=== PATIENT | male | born 1985 | race Caucasian/White ===

== ENCOUNTER 2018-07-28 14:35 | Inpatient (IN) ==
[2018-07-28 15:39] LABS: Alanine Aminotransferase 28 Units/L (7-52); Albumin 4.8 g/dL (3.5-5.7); Albumin/Globulin Ratio 1.7 (1.1-2.2); Alkaline Phosphatase 76 Units/L (34-104); Aspartate Amino Transferase 25 Units/L (13-39); BUN/Creatinine Ratio 16 (6-26); Bilirubin,Direct 0.1 mg/dL (0.0-0.2); Bilirubin,Indirect 0.8 mg/dL (0.0-1.2); Bilirubin,Total 0.9 mg/dL (0.3-1.0); Blood Urea Nitrogen 14 mg/dL (6-20); Calcium 9.5 mg/dL (8.6-10.3); Carbon Dioxide 23 mEq/L (23-29); Chloride 98 mEq/L (98-107); Globulin 2.8 g/dL (2.4-3.5); Glucose 109 mg/dL (70-105); Lipase 45 Units/L (11-82); Osmolality,Calculated 283 (280-300); Sodium 136 mEq/L (136-145); Total Protein 7.6 g/dL (6.4-8.9); eGFR For Non-African Americans > 60 (> 60)
--- NOTE | 2018-07-28 15:44 | Emergency Department Note ---
Disposition Clinical Impression: Pancreatitis Qualifiers: Chronicity: acute Pancreatitis type: other Acute pancreatitis complication: unspecified Qualified Code(s): K85.80 - Other acute pancreatitis without necrosis or infection Disposition: Admitted As Inpatient Condition: Fair Time of Disposition: 18:27 Abdominal Pain HPI - General Chief Complaint: ED Abdominal Pain Stated Complaint: ABD Pain Time Seen by Provider: 07/28/18 15:33 Source: patient Mode of arrival: private vehicle Limitations: no limitations Nursing Notes Reviewed: Yes Vital Signs Reviewed: Yes - History of Present Illness HPI Narrative: 32-year-old male with past medical history of necrotizing pancreatitis, splenic thrombosis treated with warfarin, hypertension, hyperlipidemia, hypertriglyceridemia, depression presenting to the ED with complaints of epigastric pain that started last night while he was asleep that woke him from sleep. He describes the pain as deep and aching, with radiation through to his back, made worse with certain movements, made better by certain other movements, 10 out of 10 in severity. Patient has tried no medications at home as he says he is limited in what he may take because he is on warfarin. Patient states his last episode of pancreatitis was in September 2017, and he states that the pain was very similar to how he feels now. He is denying fevers or chills, endorses one episode of nonbloody nonbilious vomiting, and one episode of nonbloody, non- dark, watery diarrhea. Patient had his last episode of vomiting this morning. Subsequently he was able to drink some beef broth. Patient states that he did not want to come in but was very concerned that this might be pancreatitis. Pain Scale: 8 - Related Data Allergies Allergy/AdvReac Type Severity Reaction Status Date / Time No Known Allergies Allergy Verified 07/28/18 23:09 Review of Systems: All systems ED: reviewed and negative except as stated. Constitutional: Denies: fever, chills ENT ED: Denies: ear pain, throat pain Cardiovascular: Denies: chest pain, palpitations Respiratory: Denies: cough, dyspnea Gastrointestinal: Denies: constipation Reports: abdominal pain, nausea, vomiting, diarrhea Genitourinary: Denies: urgency, dysuria, frequency Musculoskeletal: Denies: neck pain Reports: back pain Integumentary: Denies: rash, abrasion Neurological: Denies: headache, weakness, numbness, paresthesias Psychiatric: Denies: anxiety, Reports: depression Endocrine: Denies: fatigue, heat or cold intolerance Hematological/Lymphatic: Denies: easy bleeding, easy bruising Allergic/Immunologic: Denies: facial swelling, urticaria Abdominal Pain PMH - Past Medical History Medical history: Reports: hyperlipidemia, hypertension, other Male Surgical History: Reports: Tonsillectomy Psychiatric history: Reports: depression - Social History Smoking status: Never smoker Alcohol use: Reports: rarely Drug use: Reports: marijuana Physical Exam General: A&O x 3. No acute distress. Well developed, well nourished. Head: atraumatic, normocephalic. ENT: No conjunctival injection, no scleral icterus. PERRLA. EOMI. Oropharynx non- erythematous. mucous membranes tacky. Neuro: No focal deficits, no speech deficit, no facial droop, mentating well. BUE/BLE Str 5/5. Pulm: Lungs CTAB A/P. No wheezes, rales, ronchi. Cardio: RRR no m/r/g. Chest not tender to palpation. Abd: Soft, non-distended. Normoactive bowel sounds. No guarding. Non rigid. Reports no tenderness to palpation, even with deep palpation in epigastric area. He reports it is "deeper than that". Extremities: Radial pulses 2+ gage, dorsalis pedis/posterior tibialis 2+ gage. No LE edema. No cyanosis, clubbing. Skin: warm, dry, intact. No rashes. Psych: Appropriate mood and affect. Answers questions appropriately. Cooperative with exam. - General Limitations: no limitations General appearance: alert, in no apparent distress Course Course Narrative: Ddx includes but is not limited to: pancreatitis, choleycystitis, choleylithiasis, mesenteric ischemia, AAA Plan: CBC, BMP, hepatic panel, lipase, EKG, troponin, CXR, lactic - Reevaluation(s) Reevaluation #1: On rexamination, pt's abd remained soft, pain was better controlled, but he expressed concern for being sent home as he lives alone and was in a lot of pain while driving himself out here. Did not feel safe enough to be discharged with the possibility of his symptoms getting worse. Time: 17:38 Vital Signs Temperature 98.8 F 07/28/18 14:38 Pulse Rate 95 07/28/18 14:38 Respiratory Rate 14 07/28/18 14:38 Blood Pressure 177/123 07/28/18 14:38 O2 Sat by Pulse Oximetry 97 07/28/18 14:38 Temperature 98.8 F 07/28/18 14:38 Pulse Rate 86 07/28/18 15:40 Respiratory Rate 22 07/28/18 15:40 Blood Pressure 173/113 07/28/18 15:40 O2 Sat by Pulse Oximetry 99 07/28/18 15:40 Oxygen Delivery Oxygen Delivery Room Air Abdominal Pain - MDM Narrative Medical decision making narrative: Pts CT was concerning for mild pancreatic stranding and combined with abdominal pain, these findings are concerning for pancreatitis. Given pt's history of necrotizing pancreatitis and the fact that the pt lives alone, if he were to develop worse symptoms, he did not feel as if he could care for himself and that it would be difficult for him to return should his symptoms get worse. Pt was made NPO, started on fluids, and had pain control and anti-nausea meds administered in the ED. He was admitted to the hospitalist, Dr. Liu, who agreed to accept the pt to his service. Patient was given an opportunity to ask questions at bedside and all of their concerns were addressed. Patient verbalized understanding and agreement with plan of care. Pt remained stable while in the department. - Medical Records Medical records reviewed: Yes I reviewed the patient's medical records. - Lab Data Lab results reviewed: Yes I reviewed the patient's lab results. Result diagrams: 07/28/18 14:45 07/28/18 14:45 Lab Results 07/28/18 07/28/18 07/28/18 Range/Units 14:45 14:45 15:36 WBC 7.7 (4.3-11.1) K/mcL RBC 5.23 (4.19-5.50) M/mcL Hgb 15.4 (12.9-16.9) g/dL Hct 44.7 (37.5-50.1) % MCV 85.5 (83.0-100.0) fL MCH 29.4 (28.0-33.3) pg MCHC 34.5 (31.6-35.5) g/dL RDW 13.3 (11.5-14.5) % Plt Count 280 (140-400) K/mcL MPV 9.7 (9.4-12.4) fL Immature Gran % 0.4 (0-4) % Seg Neutrophils % 60.4 % Lymphocytes % 31.3 % Monocytes % 6.3 % Eosinophils % 1.0 % Basophils % 0.6 % Neutrophils # 4.7 (1.6-8.9) K/mcL Lymphocytes # 2.4 (0.6-4.6) K/mcL Monocytes # 0.5 (0.0-1.3) K/mcL Eosinophils # 0.1 (0.0-0.6) K/mcL Basophils # 0.1 (0.0-0.2) K/mcL PT (9.4-12.1) Seconds INR APTT (26.0-36.0) Seconds Sodium 136 (136-145) mEq/L Potassium 4.0 (3.5-5.1) mEq/L Chloride 98 (98-107) mEq/L Carbon Dioxide 23 (23-29) mEq/L BUN 14 (6-20) mg/dL Creatinine 0.90 (0.70-1.30) mg/dL Est GFR ( Amer) > 60 (> 60) Est GFR (Non-Af Amer) > 60 (> 60) BUN/Creatinine Ratio 16 (6-26) Glucose 109 H (70-105) mg/dL Calculated Osmolality 283 (280-300) Lactic Acid (0.5-2.2) mmol/L Calcium 9.5 (8.6-10.3) mg/dL Total Bilirubin 0.9 (0.3-1.0) mg/dL Direct Bilirubin 0.1 (0.0-0.2) mg/dL Indirect Bilirubin 0.8 (0.0-1.2) mg/dL AST 25 (13-39) Units/L ALT 28 (7-52) Units/L Alkaline Phosphatase 76 (34-104) Units/L Lactate Dehydrogenase (140-271) Units/L Troponin I (< 0.04) ng/mL Serum Total Protein 7.6 (6.4-8.9) g/dL Albumin 4.8 (3.5-5.7) g/dL Globulin 2.8 (2.4-3.5) g/dL Albumin/Globulin Ratio 1.7 (1.1-2.2) Triglycerides (< 150) mg/dL Lipase 45 (11-82) Units/L Urine Color Yellow (Yellow) Urine Clarity Clear (Clear) Urine pH 6.0 (5.0-8.0) pH Units Ur Specific [place] 1.015 (1.010-1.025) Urine Protein Negative (Neg-Trace) mg/dL Urine Glucose (UA) Normal (Normal) mg/dL Urine Ketones Negative (Negative) mg/dL Urine Blood Negative (Negative) Urine Nitrite Negative (Negative) Urine Bilirubin Negative (Negative) Urine Urobilinogen Normal (Normal) mg/dL Ur Leukocyte Esterase Negative (Negative) Ur Culture Indicated? NO (NO) 07/28/18 07/28/18 07/28/18 Range/Units 15:51 15:51 16:16 WBC (4.3-11.1) K/mcL RBC (4.19-5.50) M/mcL Hgb (12.9-16.9) g/dL Hct (37.5-50.1) % MCV (83.0-100.0) fL MCH (28.0-33.3) pg MCHC (31.6-35.5) g/dL RDW (11.5-14.5) % Plt Count (140-400) K/mcL MPV (9.4-12.4) fL Immature Gran % (0-4) % Seg Neutrophils % % Lymphocytes % % Monocytes % % Eosinophils % % Basophils % % Neutrophils # (1.6-8.9) K/mcL Lymphocytes # (0.6-4.6) K/mcL Monocytes # (0.0-1.3) K/mcL Eosinophils # (0.0-0.6) K/mcL Basophils # (0.0-0.2) K/mcL PT 14.2 H (9.4-12.1) Seconds INR 1.3 APTT 27.1 (26.0-36.0) Seconds Sodium (136-145) mEq/L Potassium (3.5-5.1) mEq/L Chloride (98-107) mEq/L Carbon Dioxide (23-29) mEq/L BUN (6-20) mg/dL Creatinine (0.70-1.30) mg/dL Est GFR ( Amer) (> 60) Est GFR (Non-Af Amer) (> 60) BUN/Creatinine Ratio (6-26) Glucose (70-105) mg/dL Calculated Osmolality (280-300) Lactic Acid 2.0 (0.5-2.2) mmol/L Calcium (8.6-10.3) mg/dL Total Bilirubin (0.3-1.0) mg/dL Direct Bilirubin (0.0-0.2) mg/dL Indirect Bilirubin (0.0-1.2) mg/dL AST (13-39) Units/L ALT (7-52) Units/L Alkaline Phosphatase (34-104) Units/L Lactate Dehydrogenase 157 (140-271) Units/L Troponin I < 0.03 (< 0.04) ng/mL Serum Total Protein (6.4-8.9) g/dL Albumin (3.5-5.7) g/dL Globulin (2.4-3.5) g/dL Albumin/Globulin Ratio (1.1-2.2) Triglycerides 1488 H (< 150) mg/dL Lipase (11-82) Units/L Urine Color (Yellow) Urine Clarity (Clear) Urine pH (5.0-8.0) pH Units Ur Specific [place] (1.010-1.025) Urine Protein (Neg-Trace) mg/dL Urine Glucose (UA) (Normal) mg/dL Urine Ketones (Negative) mg/dL Urine Blood (Negative) Urine Nitrite (Negative) Urine Bilirubin (Negative) Urine Urobilinogen (Normal) mg/dL Ur Leukocyte Esterase (Negative) Ur Culture Indicated? (NO) - Radiology Data Radiology results reviewed: Yes I reviewed the patient's radiology results. Chest X-Ray 07/28/18 15:59 IMPRESSION: No acute abnormality detected. D/ / Juaquin Pollock MD / Juaquin Pollock MD Interpreting Provider: Juaquin Pollock MD Abdomen/Pelvis CT 07/28/18 16:00 IMPRESSION: 1. Mild stranding adjacent to the pancreatic head compatible with history of pancreatitis. 2. Low-density lesion in the tail of the pancreas is unchanged, potentially representing pancreatic pseudocyst. Attention on follow-up. D/ / Naveen Webb MD / Naveen Webb MD Interpreting Provider: Naveen Webb MD - EKG Data EKG attestation: Yes I reviewed and interpreted this EKG. EKG results narrative: HR 72, rhythm sinus, axis normal. MS 190, QRS 99, QTc 410. No clinically significant ST elevation or depression. No WPW, no brugada patterns. Attestation Statement - Attestation Attestation: Resident Attestation: I examined this patient and my medical decision making was reviewed with the Resident Physician. I agree with the documented findings, disposition and treatment plan as described except to the extent set forth below. We independently had [id number] contact with the patient. Patient presenting to the emergency department for epigastric pain. Patient with history of necrotizing pancreatitis secondary to elevated triglycerides. Patient with no family physician. Patient will undergo further evaluation for pancreatitis. Patient significant tenderness to the epigastric region. No rebound or guarding. Patient's labs are otherwise unremarkable. CT scan concerning for pancreatitis. Given CT scan findings as well as clinical impression of pancreatitis patient was offered pain management as well as by mouth trial. Patient states he is unable to tolerate by mouth and does not want to try. Patient concerned about going home as he was barely able to drive himself to the emergency department today secondary to pain. Patient will be admitted for further observation and management of pancreatitis.
[2018-07-28] MEDS ORDERED: Ondansetron 4 MG/2 ML VIAL IVP ONE (15:51)
[2018-07-28] MEDS ORDERED: *HR* FentaNYL (PF) 100 MCG/2 ML VIAL IVP ONE (15:51)
[2018-07-28 15:54] LABS: Bilirubin,Urine Negative (Negative); Blood,Urine Negative (Negative); Clarity,Urine Clear (Clear); Color,Urine Yellow (Yellow); Glucose,Urine (UA) Normal (Normal); Ketones,Urine Negative (Negative); Leukocyte Esterase,Urine Negative (Negative); Nitrite,Urine Negative (Negative); Protein,Urine Negative (Neg-Trace); Specific Gravity,Urine 1.015 (1.010-1.025); Urobilinogen,Urine Normal (Normal)
[2018-07-28] MEDS ORDERED: Isovue-370 500 ML BOTTLE IVP ONE (15:59)
[2018-07-28] MEDS ORDERED: 0.9 % Sodium Chloride 1,000 ML IVC ONE (16:21)
[2018-07-28 16:35] LABS: Basophils # 0.1 K/mcL (0.0-0.2); Basophils % 0.6 %; Eosinophils # 0.1 K/mcL (0.0-0.6); Hematocrit 44.7 % (37.5-50.1); Hemoglobin 15.4 g/dL (12.9-16.9); Immature Granulocytes % 0.4 % (0-4); Lymphocytes # 2.4 K/mcL (0.6-4.6); Lymphocytes % 31.3 %; Mean Corpuscular HGB Conc 34.5 g/dL (31.6-35.5); Mean Corpuscular Hemoglobin 29.4 pg (28.0-33.3); Mean Corpuscular Volume 85.5 fL (83.0-100.0); Mean Platelet Volume 9.7 fL (9.4-12.4); Monocytes # 0.5 K/mcL (0.0-1.3); Monocytes % 6.3 %; Neutrophils # 4.7 K/mcL (1.6-8.9); Platelet Count 280 K/mcL (140-400); Red Blood Count 5.23 M/mcL (4.19-5.50); Red Cell Distribution Width 13.3 % (11.5-14.5); Segmented Neutrophils % 60.4 %
[2018-07-28 16:37] LABS: INR 1.3; Prothrombin Time 14.2 Seconds (9.4-12.1)
[2018-07-28 16:40] LABS: Activated Partial Thrombo Time 27.1 Seconds (26.0-36.0)
[2018-07-28 16:55] LABS: Troponin I < 0.03 ng/mL (< 0.04)
[2018-07-28] MEDS ORDERED: *HR* Morphine 2 MG/ML SYRINGE IVP STA (17:06)
[2018-07-28 18:11] LABS: Lactate Dehydrogenase 157 Units/L (140-271); Triglycerides 1488 mg/dL (< 150)
[2018-07-28] MEDS ORDERED: *HR* Morphine 2 MG/ML SYRINGE IVP ONE (18:54)
[2018-07-28] MEDS ORDERED: *HR* Heparin 5,000 UNIT/ML VIAL IVP PRN ×2 (20:53)
[2018-07-28] MEDS ORDERED: OXYCODONE Oral CONC 10 MG/0.5 ML ORAL.SYG SL PRN (20:55)
[2018-07-28] MEDS ORDERED: Naloxone 0.4 MG/ML INJ IVP PRN (20:55)
[2018-07-28] MEDS ORDERED: Ondansetron 4 MG/2 ML VIAL IVP PRN (21:33)
--- NOTE | 2018-07-28 21:43 | Internal Med History&Physical ---
Date of Encounter: 07/28/18 Time of Encounter: 20:55 Internal Medicine - H&P: HPI Chief complaint: Pancreatitis Admitted From: Emergency Dept Plans for Post Hospital Care: Home History of present illness: Mr. Scanlon is a 32 year old male Patient presented to the ER with epigastic abdominal pain. He has a history of pancreatitis, was treated in [place] last September for this. He was found to have necrotizing pancreatitis and splenic thrombosis. He was discharged, and was started on warfarin at that time. Earlier this morning he states that an abdominal pain woke him from sleep, was deep, sharp and radiated to his back. He says it was similar to his previous episode of pancreatitis. He had associated vomiting x1 at home as well, and continued nausea. He drove himself to the ER for further evaluation. In the ER patient's vital signs showed an elevated blood pressure of 177/123. CBC was within normal limits. BMP showed a slightly elevated glucose of 109. INR 1.3, Triglycerides of 1488, lipase of 45. Urinalysis was negative for infection. Chest x-ray had no acute abnormality detected. Results of the abdomen CT are below, but revealed mild stranding adjacent to the pancreatic head, and a stable low-density lesion in the tail of the pancreas. patient was given 1L of IV fluids, fentanyl, morphine and ondansetron and sent to the medical floor for further management. Upon my evaluation, patient states that he feels his abdominal pain returning. He has a significant history of hypertension, hyperlipidemia and coumadin use. Last INR last week he states was 2.9. He denies chest pain, nausea, vomiting, diarrhea and constipation. He describes his abdominal pain as a deep, throbbing sharp pain with radiation to his back. He has a family history of diabetes in his maternal grandmother, and his father has a history of pancreatitis, though he is unsure of the cause. He is a full code. Past Med Surg Social Fam HX - Past Medical History Medical history: hyperlipidemia, hypertension, other Additional medical history: necrotizing pancreatitis-2018 Psychiatric history: depression - Social History Smoking Status: Light tobacco smoker Packs per day: .25 Smokeless Tobacco Status: No Alcohol use: none Drug use: marijuana Internal Medicine - H&P: Meds Allergy/AdvReac Type Severity Reaction Status Date / Time No Known Allergies Allergy Verified 05/02/18 13:18 All Systems PM: A 10-system review of systems was performed and is negative for pertinent findings except as documented above in the HPI. - Constitutional Vitals: Temp Pulse Resp BP Pulse Ox 98.8 F 87 15 176/124 96 07/28/18 20:50 07/28/18 20:50 07/28/18 20:50 07/28/18 20:50 07/28/18 20:50 General appearance: Present: cooperative, mild distress, A&O X 3, pleasant, answers questions appropriately Exam: - - Head Head exam: Present: normal inspection - Eye Eye exam: Present: EOMI, normal appearance - Respiratory Respiratory exam: Present: CTAB. Absent: rales, respiratory distress, rhonchi, wheezes - Cardiovascular Cardiovascular exam: Present: RRR. Absent: diastolic murmur, systolic murmur - GI/Abdominal GI/Abdominal exam: Present: normal bowel sounds, soft, tenderness Additional comments: Patient has epigastric pain, not worse with palpation - Extremities Exam Extremities exam: Present: warm, radial pulses palpable and symmetrical. Absent: calf tenderness, pedal edema, tenderness - Neurological Exam Neurological exam: Present: no focal deficits, strengths equal and symetr throug hout. Absent: motor sensory deficit, facial droop, speech deficit - Skin Skin exam: Present: dry, normal color, warm Internal Med - H&P Results - Labs CBC & Chem 7: 07/28/18 14:45 07/28/18 14:45 Labs: Short CBC 07/28/18 Range/Units 14:45 WBC 7.7 (4.3-11.1) K/mcL Hgb 15.4 (12.9-16.9) g/dL Hct 44.7 (37.5-50.1) % Plt Count 280 (140-400) K/mcL Neutrophils # 4.7 (1.6-8.9) K/mcL BMP 07/28/18 14:45 Sodium 136 Potassium 4.0 Chloride 98 Carbon Dioxide 23 BUN 14 Creatinine 0.90 Glucose 109 H Calcium 9.5 Cardiac Enzymes 07/28/18 Range/Units 15:51 Troponin I < 0.03 (< 0.04) ng/mL Liver Function 07/28/18 Range/Units 14:45 Total Bilirubin 0.9 (0.3-1.0) mg/dL Direct Bilirubin 0.1 (0.0-0.2) mg/dL AST 25 (13-39) Units/L ALT 28 (7-52) Units/L Alkaline Phosphatase 76 (34-104) Units/L Albumin 4.8 (3.5-5.7) g/dL Urine 07/28/18 Range/Units 15:36 Urine Color Yellow (Yellow) Urine Clarity Clear (Clear) Urine pH 6.0 (5.0-8.0) pH Units Ur Specific [place] 1.015 (1.010-1.025) Urine Protein Negative (Neg-Trace) mg/dL Urine Glucose (UA) Normal (Normal) mg/dL - Impressions ITS Impressions Chest X-Ray 07/28/18 15:59 IMPRESSION: No acute abnormality detected. D/ / Juaquin Pollock MD / Juaquin Pollock MD Interpreting Provider: Juaquin Pollock MD Abdomen/Pelvis CT 07/28/18 16:00 IMPRESSION: 1. Mild stranding adjacent to the pancreatic head compatible with history of pancreatitis. 2. Low-density lesion in the tail of the pancreas is unchanged, potentially representing pancreatic pseudocyst. Attention on follow-up. D/ / Naveen Webb MD / Naveen Webb MD Interpreting Provider: Naveen Webb MD - Assessment and Plan (1) Pancreatitis Current Visit: Yes Status: Acute Assessment and plan: Patient has had pancreatitis in the past, most recently 10/15. Pain in abdomen similar to that episode. CT showed mild pancreatitic stranding consistent with pancreatitis. Lipase was 45. Triglycerides 1488. NPO Pain management as needed Full lipid panel in the AM A1c in the morning Will hold off on IV fluids until blood pressure under control Qualifiers: Chronicity: acute Pancreatitis type: other Acute pancreatitis complication: unspecified Qualified Code(s): K85.80 - Other acute pancreatitis without necrosis or infection (2) Subtherapeutic international normalized ratio (INR) Current Visit: Yes Status: Acute Assessment and plan: INR 1.3 in the ER. Start heparin drip Pharmacy to dose Coumadin Repeat INR in AM (3) Hypertensive urgency Current Visit: Yes Status: Acute Assessment and plan: Blood pressure significantly elevated in the ER. Diastolic in the 120s. IV hydralazine Q6H PRN Consider cardene drip if not improving (4) Hypertriglyceridemia Current Visit: Yes Status: Acute Assessment and plan: Continue home meds at discharge. Likely contributing to his pancreatitis (5) Abdominal pain Current Visit: Yes Status: Acute Assessment and plan: Not worsened by palpation. Likely secondary to pancreatitis. Management as above. Qualifiers: Abdominal location: epigastric Qualified Code(s): R10.13 - Epigastric pain (6) Hyperglycemia Current Visit: Yes Status: Acute Assessment and plan: Patient's blood sugar is 109 in the ER, denies history of diabetes, has not eaten anything all day. Has history of hypertriglyceridemia. A1c in the morning (7) Current nicotine use Current Visit: Yes Status: Acute Assessment and plan: Patient admits to smoking 1 pack/week Declines nicotine patch (8) DVT prophylaxis Current Visit: Yes Status: Acute Assessment and plan: Pharmacy to dose warfarin Start heparin drip Repeat INR in the morning - Time Spent With Patient Total time spent is greater than 50% in coordination of care (as documented) at patient's floor/unit and/or counseling patient: Greater than 35 minutes
[2018-07-28] MEDS ORDERED: *HR* Heparin 5,000 UNIT/ML VIAL IVP ONE (21:45)
[2018-07-28] MEDS: OXYCODONE Oral CONC 10 MG/0.5 ML ORAL.SYG SL PRN (21:53)
[2018-07-28] MEDS: Heparin 25,000 UNIT/250 ML D5W 25,000 UNIT/250 ML IV.SOLN IVC SCH (22:24)
[2018-07-28] MEDS ORDERED: *HR* Warfarin 5 MG TABLET PO STA (23:56)
[2018-07-29] MEDS: OXYCODONE Oral CONC 10 MG/0.5 ML ORAL.SYG SL PRN ×6 (03:48→22:46)
[2018-07-29 04:50] LABS: Hematocrit 42.8 % (37.5-50.1); Hemoglobin 14.7 g/dL (12.9-16.9); Mean Corpuscular HGB Conc 34.3 g/dL (31.6-35.5); Mean Corpuscular Hemoglobin 29.9 pg (28.0-33.3); Mean Platelet Volume 9.5 fL (9.4-12.4); Platelet Count 210 K/mcL (140-400); Red Blood Count 4.92 M/mcL (4.19-5.50); Red Cell Distribution Width 13.3 % (11.5-14.5)
[2018-07-29 05:00] LABS: INR 1.1; Prothrombin Time 12.9 Seconds (9.4-12.1)
[2018-07-29 05:06] LABS: BUN/Creatinine Ratio 9 (6-26); Blood Urea Nitrogen 8 mg/dL (6-20); Carbon Dioxide 24 mEq/L (23-29); Chloride 104 mEq/L (98-107); Glucose 100 mg/dL (70-105); Osmolality,Calculated 280 (280-300); Potassium 3.5 mEq/L (3.5-5.1); Sodium 136 mEq/L (136-145); eGFR For Non-African Americans > 60 (> 60)
--- NOTE | 2018-07-29 08:44 | Electrocardiograph Report ---
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
[2018-07-29] MEDS: 0.9 % Sodium Chloride 1,000 ML IVC SCH ×2 (11:28→19:47)
[2018-07-29] MEDS ORDERED: OXYCODONE Oral CONC 10 MG/0.5 ML ORAL.SYG SL PRN (12:35)
--- NOTE | 2018-07-29 15:14 | Internal Med Progress Note ---
Hospitalist Progress Note - Encounter Date of Encounter: 07/29/18 Time of Encounter: 15:13 - Subjective Interval History: Pt today still having quite a bit of pain. States it's worse than yesterday, improves with pain meds but they don't last the whole 4 hours. N/V yesterday but none today, although no appetite at all. No fevers, no diarrhea. - Exam Vitals: Temp Pulse Resp BP Pulse Ox 98.4 F 110 16 149/98 97 07/29/18 12:33 07/29/18 12:33 07/29/18 12:33 07/29/18 12:33 07/29/18 12:33 Exam: General: NAD, good eye contact, uncomfortable appearing Thoracic: Normal breath sounds b/l, no wheezing or crackles Cardio: Normal S1 and S2, regular rate and rhythm, no murmurs Abdomen: Soft, nontender, nondistended. Extremities: Warm, well perfused. DP pulses 2+ b/l. No edema. Skin: Intact. No rashes, bruises, or ulcers Neuro: Awake, fully oriented. Speech fluent - Summary of Assessment and Plan Summary of Assessment and Plan: Giuliano Scanlon is a 32 M w hx HTN, necrotizing pancreatitis, ?splenic vein thrombosis, who p/w abd pain, N/V, and CT showing peripancreatic stranding, suggestive of acute pancreatitis. Acute pancreatitis: abd pain and CT w peripanc head stranding w small pseudocyst in tail. Still has GB, and lipids show TG 1500, not on culprit meds - daily LFTs - recheck lipase in AM - recheck triglyceride in AM - RUQ US - NPO - MIVF NS@150 - supportive care: zofran prn nausea, tylenol and oxycodone prn pain Splenic vein thrombosis: noncirrhotic patient, on warfarin, subtherapeutic - hep gtt until therapeutic - getting records from [facility] [place] - consider GI consult Hypertriglyceridemia: home gemfibrozil HTN: uncontrolled 2/2 pain, home amlodipine Anx/dep: home zoloft 200, vistaril prn Obesity: BMI 32 PPx: ambulation FEN: NPO, MIVF as above Lines: PIV Consults: consider GI Code: Full Dispo: patient requires inpatient eval and management at this time. Anticipate 2-3 days. Will be homegoing Internal Medicine: Result - Labs CBC & Chem 7: 07/29/18 04:28 07/29/18 04:28 Labs: Short CBC 07/28/18 07/29/18 Range/Units 14:45 04:28 WBC 7.7 10.5 (4.3-11.1) K/mcL Hgb 15.4 14.7 (12.9-16.9) g/dL Hct 44.7 42.8 (37.5-50.1) % Plt Count 280 210 (140-400) K/mcL Neutrophils # 4.7 (1.6-8.9) K/mcL BMP 07/28/18 07/29/18 14:45 04:28 Sodium 136 136 Potassium 4.0 3.5 Chloride 98 104 Carbon Dioxide 23 24 BUN 14 8 Creatinine 0.90 0.85 Glucose 109 H 100 Calcium 9.5 9.0 Cardiac Enzymes 07/28/18 Range/Units 15:51 Troponin I < 0.03 (< 0.04) ng/mL Liver Function 07/28/18 Range/Units 14:45 Total Bilirubin 0.9 (0.3-1.0) mg/dL Direct Bilirubin 0.1 (0.0-0.2) mg/dL AST 25 (13-39) Units/L ALT 28 (7-52) Units/L Alkaline Phosphatase 76 (34-104) Units/L Albumin 4.8 (3.5-5.7) g/dL Urine 07/28/18 Range/Units 15:36 Urine Color Yellow (Yellow) Urine Clarity Clear (Clear) Urine pH 6.0 (5.0-8.0) pH Units Ur Specific [place] 1.015 (1.010-1.025) Urine Protein Negative (Neg-Trace) mg/dL Urine Glucose (UA) Normal (Normal) mg/dL - ABG Interpretation ABG results: PT/INR, D-dimer PT 12.9 Seconds (9.4-12.1) H 07/29/18 04:28 - Impressions Impressions Chest X-Ray 07/28/18 15:59 IMPRESSION: No acute abnormality detected. D/ / Juaquin Pollock MD / Juaquin Pollock MD Interpreting Provider: Juaquin Pollock MD Abdomen/Pelvis CT 07/28/18 16:00 IMPRESSION: 1. Mild stranding adjacent to the pancreatic head compatible with history of pancreatitis. 2. Low-density lesion in the tail of the pancreas is unchanged, potentially representing pancreatic pseudocyst. Attention on follow-up. D/ / Naveen Webb MD / Naveen Webb MD Interpreting Provider: Naveen Webb MD Consult Discharge Plan - Plan [facility]errals: [facility]Primary Care Provider[facility] -
[2018-07-29] MEDS ORDERED: hydrOXYzine pamoate 25 MG CAPSULE PO PRN (15:32)
[2018-07-29] MEDS: amLODIPine 5 MG TABLET PO SCH (17:29)
[2018-07-29] MEDS: Heparin 25,000 UNIT/250 ML D5W 25,000 UNIT/250 ML IV.SOLN IVC SCH (17:42)
[2018-07-29] MEDS ORDERED: *HR* Warfarin 10 MG TABLET PO ONE (18:00)
[2018-07-29] MEDS ORDERED: Warfarin perPT PO PRN (18:00)
[2018-07-30] MEDS: OXYCODONE Oral CONC 10 MG/0.5 ML ORAL.SYG SL PRN ×6 (02:43→21:07)
[2018-07-30 03:10] LABS: Hematocrit 45.8 % (37.5-50.1); Hemoglobin 15.3 g/dL (12.9-16.9); Mean Corpuscular HGB Conc 33.4 g/dL (31.6-35.5); Mean Corpuscular Hemoglobin 29.7 pg (28.0-33.3); Mean Corpuscular Volume 88.9 fL (83.0-100.0); Mean Platelet Volume 9.7 fL (9.4-12.4); Platelet Count 207 K/mcL (140-400); Red Blood Count 5.15 M/mcL (4.19-5.50); Red Cell Distribution Width 13.4 % (11.5-14.5)
[2018-07-30 03:19] LABS: INR 1.3; Prothrombin Time 15.1 Seconds (9.4-12.1)
[2018-07-30 03:31] LABS: Alanine Aminotransferase 16 Units/L (7-52); Albumin 4.1 g/dL (3.5-5.7); Albumin/Globulin Ratio 1.4 (1.1-2.2); Alkaline Phosphatase 77 Units/L (34-104); Aspartate Amino Transferase 14 Units/L (13-39); BUN/Creatinine Ratio 7 (6-26); Bilirubin,Direct 0.2 mg/dL (0.0-0.2); Bilirubin,Indirect 0.8 mg/dL (0.0-1.2); Blood Urea Nitrogen 6 mg/dL (6-20); Calcium 9.2 mg/dL (8.6-10.3); Carbon Dioxide 28 mEq/L (23-29); Chloride 100 mEq/L (98-107); Chol/HDL Ratio 5.7 (0-4.9); Cholesterol 189 mg/dL (< 200); Glucose 105 mg/dL (70-105); HDL Cholesterol 33 mg/dL (40-59); Lipase 191 Units/L (11-82); Magnesium 1.9 mg/dL (1.6-2.6); Osmolality,Calculated 278 (280-300); Potassium 3.5 mEq/L (3.5-5.1); Sodium 135 mEq/L (136-145); Total Protein 7.1 g/dL (6.4-8.9); Triglycerides 844 mg/dL (< 150); eGFR For Non-African Americans > 60 (> 60)
[2018-07-30] MEDS: 0.9 % Sodium Chloride 1,000 ML IVC SCH ×3 (03:51→21:51)
[2018-07-30] MEDS: amLODIPine 5 MG TABLET PO SCH (08:43)
--- NOTE | 2018-07-30 13:15 | Internal Med Progress Note ---
Hospitalist Progress Note - Encounter Date of Encounter: 07/30/18 Time of Encounter: 13:15 - Subjective Interval History: Pt feels his pain is slightly improving, although is still using frequent pain meds. Denies any further N or V. States he has a bit of an appetite and would be interested in drinking water today. - Exam Vitals: Temp Pulse Resp BP Pulse Ox 98.3 F 109 16 149/101 94 07/30/18 10:03 07/30/18 10:03 07/30/18 10:03 07/30/18 10:03 07/30/18 10:03 Exam: General: NAD, good eye contact, comfortable appearing today Thoracic: Normal breath sounds b/l, no wheezing or crackles Cardio: Normal S1 and S2, regular rate and rhythm, no murmurs Abdomen: Soft, nontender, nondistended. Extremities: Warm, well perfused. DP pulses 2+ b/l. No edema. Skin: Intact. No rashes, bruises, or ulcers Neuro: Awake, fully oriented. Speech fluent - Summary of Assessment and Plan Summary of Assessment and Plan: Giuliano Scanlon is a 32 M w hx HTN, necrotizing pancreatitis c/b splenic vein thrombosis on AC, who p/w abd pain, N/V, lipase 200, and CT showing peripancreatic head stranding, suggestive of acute pancreatitis. Acute pancreatitis: abd pain, lipase 200, and CT w peripanc head stranding w small pseudocyst in tail. Still has GB although RUQ shows no ductal or GB abnormalities. Lipids show TG 1500, and pt on gemfibrozil at home and will likely need statin, too. Not on any culprit meds. Today shows some clinical i mprovement. - daily LFTs - advance to clears, pt to initiate PO slowly - continue MIVF NS@150 - supportive care: zofran prn nausea, tylenol and oxycodone prn pain, of which oxycodone dose will be decreased from 10q3 to 5q3 today Splenic vein thrombosis: noncirrhotic patient, on warfarin, subtherapeutic - hep gtt until therapeutic on coumadin - still awaiting records from [facility] Hypertriglyceridemia: home gemfibrozil, add statin at d/c HTN: home amlodipine Anx/dep: home zoloft 200, vistaril prn Obesity: BMI 32 PPx: ambulation FEN: clears, MIVF as above Lines: PIV Consults: consider GI Code: Full Dispo: patient requires inpatient eval and management at this time. Anticipate 2 -3 days. Will be homegoing Internal Medicine: Result - Labs CBC & Chem 7: 07/30/18 02:56 07/30/18 02:56 Labs: Short CBC 07/30/18 Range/Units 02:56 WBC 11.5 H (4.3-11.1) K/mcL Hgb 15.3 (12.9-16.9) g/dL Hct 45.8 (37.5-50.1) % Plt Count 207 (140-400) K/mcL BMP 07/30/18 02:56 Sodium 135 L Potassium 3.5 Chloride 100 Carbon Dioxide 28 BUN 6 Creatinine 0.87 Glucose 105 Calcium 9.2 Liver Function 07/30/18 Range/Units 02:56 Total Bilirubin 1.0 (0.3-1.0) mg/dL Direct Bilirubin 0.2 (0.0-0.2) mg/dL AST 14 (13-39) Units/L ALT 16 (7-52) Units/L Alkaline Phosphatase 77 (34-104) Units/L Albumin 4.1 (3.5-5.7) g/dL - ABG Interpretation ABG results: PT/INR, D-dimer PT 15.1 Seconds (9.4-12.1) H 07/30/18 02:56 - Impressions Impressions Gallbladder Ultrasound 07/29/18 18:00 IMPRESSION: Unremarkable right upper quadrant ultrasound. D/ / Saad Cavazos MD / Saad Cavazos MD Interpreting Provider: Saad Cavazos MD Consult Discharge Plan - Plan [facility]: [facility] [Primary Care Provider] -
[2018-07-30] MEDS ORDERED: Acetaminophen 325 MG TABLET PO PRN (13:30)
[2018-07-30] MEDS: Heparin 25,000 UNIT/250 ML D5W 25,000 UNIT/250 ML IV.SOLN IVC SCH (13:40)
[2018-07-30] MEDS ORDERED: *HR* Warfarin 10 MG TABLET PO ONE (18:00)
[2018-07-30] MEDS: Melatonin 3 MG TABLET PO PRN (21:07)
[2018-07-31] MEDS: OXYCODONE Oral CONC 10 MG/0.5 ML ORAL.SYG SL PRN ×6 (01:16→19:57)
[2018-07-31 01:43] LABS: Albumin 4.1 g/dL (3.5-5.7); Albumin/Globulin Ratio 1.2 (1.1-2.2); BUN/Creatinine Ratio 6 (6-26); Bilirubin,Direct 0.3 mg/dL (0.0-0.2); Bilirubin,Indirect 0.6 mg/dL (0.0-1.2); Bilirubin,Total 0.9 mg/dL (0.3-1.0); Blood Urea Nitrogen 5 mg/dL (6-20); Calcium 9.2 mg/dL (8.6-10.3); Carbon Dioxide 27 mEq/L (23-29); Chloride 103 mEq/L (98-107); Globulin 3.3 g/dL (2.4-3.5); Glucose 106 mg/dL (70-105); Osmolality,Calculated 280 (280-300); Potassium 3.8 mEq/L (3.5-5.1); Sodium 136 mEq/L (136-145); Total Protein 7.4 g/dL (6.4-8.9); eGFR For Non-African Americans > 60 (> 60)
[2018-07-31 01:46] LABS: Hematocrit 40.7 % (37.5-50.1); Mean Corpuscular HGB Conc 32.9 g/dL (31.6-35.5); Mean Corpuscular Hemoglobin 29.2 pg (28.0-33.3); Mean Corpuscular Volume 88.7 fL (83.0-100.0); Mean Platelet Volume 9.8 fL (9.4-12.4); Platelet Count 177 K/mcL (140-400); Red Blood Count 4.59 M/mcL (4.19-5.50); Red Cell Distribution Width 13.3 % (11.5-14.5)
[2018-07-31 02:04] LABS: Hemoglobin 13.4 g/dL (12.9-16.9)
[2018-07-31 02:06] LABS: INR 2.2; Prothrombin Time 24.4 Seconds (9.4-12.1)
[2018-07-31] MEDS: 0.9 % Sodium Chloride 1,000 ML IVC SCH ×3 (06:33→21:53)
[2018-07-31] MEDS: amLODIPine 5 MG TABLET PO SCH (08:04)
--- NOTE | 2018-07-31 11:28 | Internal Med Progress Note ---
Hospitalist Progress Note - Encounter Date of Encounter: 07/31/18 Time of Encounter: 11:26 - Subjective Interval History: Tried fluids yesterday but caused worsening pain, still required around the clock pain meds, although did tolerate the decreased dose. Today again feels better and wants to trial fluids again. No N/V yesterday, only pain. No diarrhea . No SOB or leg swelling. - Exam Vitals: Temp Pulse Resp BP Pulse Ox 98.3 F 80 16 125/75 95 07/31/18 10:48 07/31/18 10:48 07/31/18 10:48 07/31/18 10:48 07/31/18 10:48 Exam: General: NAD, good eye contact, honestly appears less comfortable today despite stating that he feels improved Thoracic: Normal breath sounds b/l, no wheezing or crackles Cardio: Normal S1 and S2, regular rate and rhythm, no murmurs Abdomen: Soft, nontender, nondistended. Extremities: Warm, well perfused. DP pulses 2+ b/l. No edema. Skin: Intact. No rashes, bruises, or ulcers Neuro: Awake, fully oriented. Speech fluent - Summary of Assessment and Plan Summary of Assessment and Plan: Giuliano Scanlon is a 32 M w hx HTN, necrotizing pancreatitis c/b splenic vein thrombosis on AC, who p/w abd pain, N/V, lipase 200, and CT showing peripancreatic head stranding, suggestive of acute pancreatitis. Acute pancreatitis: abd pain, lipase 200, and CT w peripanc head stranding w small pseudocyst in tail. Still has GB although RUQ shows no ductal or GB abnormalities. Lipids show TG 1500, and pt on gemfibrozil at home and will likely need statin, too. Not on any culprit meds. Trial of clears yesterday unsuccessful, will retrial today - advance to clears, pt to initiate PO slowly - continue MIVF NS@150 - supportive care: zofran prn nausea, tylenol and oxycodone 5q3 prn - start lipitor 40 Splenic vein thrombosis: noncirrhotic patient, on warfarin, therapeutic today - stop hep gtt Hypertriglyceridemia: home gemfibrozil, add statin at d/c HTN: home amlodipine Anx/dep: home zoloft 200, vistaril prn Obesity: BMI 32 PPx: therapeutic on warfarin FEN: clears, MIVF as above Lines: PIV Consults: Code: Full Dispo: patient requires inpatient eval and management at this time. Anticipate 1-2 days. Will be homegoing Internal Medicine: Result - Labs CBC & Chem 7: 07/31/18 01:08 07/31/18 01:08 Labs: Short CBC 07/31/18 Range/Units 01:08 WBC 8.9 (4.3-11.1) K/mcL Hgb 13.4 D (12.9-16.9) g/dL Hct 40.7 (37.5-50.1) % Plt Count 177 (140-400) K/mcL BMP 07/31/18 01:08 Sodium 136 Potassium 3.8 Chloride 103 Carbon Dioxide 27 BUN 5 L Creatinine 0.77 Glucose 106 H Calcium 9.2 Liver Function 07/31/18 Range/Units 01:08 Total Bilirubin 0.9 (0.3-1.0) mg/dL Direct Bilirubin 0.3 H (0.0-0.2) mg/dL AST 16 (13-39) Units/L ALT 15 (7-52) Units/L Alkaline Phosphatase 88 (34-104) Units/L Albumin 4.1 (3.5-5.7) g/dL - ABG Interpretation ABG results: PT/INR, D-dimer PT 24.4 Seconds (9.4-12.1) H D 07/31/18 01:08 Consult Discharge Plan - Plan [facility]errals: [facility] [Primary Care Provider] -
[2018-07-31] MEDS ORDERED: *HR* Warfarin 5 MG TABLET PO ONE (18:00)
[2018-07-31] MEDS: Melatonin 3 MG TABLET PO PRN (19:56)
[2018-08-01] MEDS: OXYCODONE Oral CONC 10 MG/0.5 ML ORAL.SYG SL PRN ×3 (01:30→09:36)
[2018-08-01] MEDS: 0.9 % Sodium Chloride 1,000 ML IVC SCH (01:31)
[2018-08-01 05:44] LABS: Hematocrit 36.5 % (37.5-50.1); Hemoglobin 12.3 g/dL (12.9-16.9); Mean Corpuscular HGB Conc 33.7 g/dL (31.6-35.5); Mean Corpuscular Hemoglobin 30.2 pg (28.0-33.3); Mean Corpuscular Volume 89.7 fL (83.0-100.0); Mean Platelet Volume 10.1 fL (9.4-12.4); Platelet Count 174 K/mcL (140-400); Red Blood Count 4.07 M/mcL (4.19-5.50); Red Cell Distribution Width 13.6 % (11.5-14.5)
[2018-08-01 05:52] LABS: INR 2.5; Prothrombin Time 27.9 Seconds (9.4-12.1)
[2018-08-01 06:04] LABS: Alanine Aminotransferase 19 Units/L (7-52); Albumin 3.8 g/dL (3.5-5.7); Albumin/Globulin Ratio 1.3 (1.1-2.2); Alkaline Phosphatase 109 Units/L (34-104); Aspartate Amino Transferase 20 Units/L (13-39); BUN/Creatinine Ratio 8 (6-26); Bilirubin,Direct 0.1 mg/dL (0.0-0.2); Bilirubin,Indirect 0.5 mg/dL (0.0-1.2); Bilirubin,Total 0.6 mg/dL (0.3-1.0); Blood Urea Nitrogen 6 mg/dL (6-20); Calcium 9.1 mg/dL (8.6-10.3); Carbon Dioxide 27 mEq/L (23-29); Chloride 104 mEq/L (98-107); Globulin 2.9 g/dL (2.4-3.5); Glucose 126 mg/dL (70-105); Magnesium 2.1 mg/dL (1.6-2.6); Osmolality,Calculated 285 (280-300); Potassium 3.9 mEq/L (3.5-5.1); Sodium 138 mEq/L (136-145); Total Protein 6.7 g/dL (6.4-8.9); eGFR For Non-African Americans > 60 (> 60)
[2018-08-01 07:03] VITALS: BP 130/86
[2018-08-01] MEDS: amLODIPine 5 MG TABLET PO SCH (08:57)
--- NOTE | 2018-08-01 10:51 | Discharge Summary ---
- NOTES TO OUTPATIENT PROVIDER Notes to Outpatient Provider: Recurrent episode of acute pancreatitis Date of Encounter: 08/01/18 Time of Encounter: 10:38 - Discharge Diagnosis (1) Pancreatitis Priority: Primary Status: Acute Qualifiers: Chronicity: acute Pancreatitis type: other Acute pancreatitis complication: unspecified Qualified Code(s): K85.80 - Other acute pancreatitis without necrosis or infection Hospital course: Dear Doctors, I recently had the opportunity to care for this patient during their recent hospital stay at [facility]. Giuliano Scanlon is a 32 M w hx HTN, necrotizing pancreatitis c/b splenic vein thrombosis on warfarin, who presented at time of admission with sharp constant progressively intensifying abdominal pain and N/V for 2 days. In the ED, pt had initial normal lipase which on recheck was 200, and CT showing peripancreatic head stranding, suggestive of acute pancreatitis. He was also noted to have INR 1.3. In the hospital, pt kept NPO and given MIVF and pain medications for 2 days. Diet slowly resumed, and pt tolerated full liquid diet well with only mild pain. He was kept on a heparin gtt until INR therapeutic. Evaluation into cause of pancreatitis showed a normal RUQ US including normal GB and no ductal dilation. His triglycerides were 1500 despite taking gemfibrozil, and pt will be started on a statin for further triglyceride reduction. 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 Please contact me with any questions or concerns regarding their hospital stay. Sincerely, Damian Ya MD - Discharge Medications Prescriptions: New Atorvastatin [Lipitor] 40 mg PO DAILY #30 tablet HYDROcodone/Acet 5/325 mg [Prescott 5-325 mg] 1 tab PO Q4H PRN 2 Days #5 tab PRN Reason: abdominal pain Continued Acamprosate Calcium 666 mg PO TID PRN PRN Reason: CRAVINGS Acetaminophen [Pain Reliever] 1,000 mg PO Q8H PRN MDD 3000MG/24H PRN Reason: Pain Amlodipine Besylate 10 mg PO DAILY Ergocalciferol (VITAMIN D2) [Vitamin D2] 50,000 unit PO QWEEK Gemfibrozil [Lopid] 600 mg PO BIDWM HydrOXYzine Pamoate [Vistaril] 100 mg PO TID PRN PRN Reason: Anxiety Hyoscyamine Sulfate [Levbid] 0.75 mg PO Q12H Melatonin [Melatin] 9 mg PO HS PRN PRN Reason: Sleep Nicotine Polacrilex [Nicotine Lozenge] 2 mg PO Q2H PRN PRN Reason: SMOKING Sertraline [Zoloft] 200 mg PO DAILY Warfarin [Coumadin] 15 mg PO MOWE Warfarin [Coumadin] 10 [facility] Home Medications: Acamprosate Calcium 666 mg PO TID PRN 07/28/18 [History] Acetaminophen [Pain Reliever] 1,000 mg PO Q8H PRN MDD 3000MG/24H 07/28/18 [History] Amlodipine Besylate 10 mg PO DAILY 07/28/18 [History] Ergocalciferol (VITAMIN D2) [Vitamin D2] 50,000 unit PO QWEEK 07/28/18 [History] Gemfibrozil [Lopid] 600 mg PO BIDWM 07/28/18 [History] HydrOXYzine Pamoate [Vistaril] 100 mg PO TID PRN 07/28/18 [History] Hyoscyamine Sulfate [Levbid] 0.75 mg PO Q12H 07/28/18 [History] Melatonin [Melatin] 9 mg PO HS PRN 07/28/18 [History] Nicotine Polacrilex [Nicotine Lozenge] 2 mg PO Q2H PRN 07/28/18 [History] Sertraline [Zoloft] 200 mg PO DAILY 07/28/18 [History] Warfarin [Coumadin] 15 mg PO MOWE 07/28/18 [History] Warfarin [Coumadin] 10 mg PO SUTUTHFRSA 07/29/18 [History] Atorvastatin [Lipitor] 40 mg PO DAILY #30 tablet 08/01/18 [Rx] HYDROcodone/Acet 5/325 mg [Prescott 5-325 mg] 1 tab PO Q4H PRN 2 Days #5 tab 08/01/18 [Rx] Allergies/Adverse Reactions: 3 Allergy/AdvReac Type Severity Reaction Status Date / Time No Known Allergies Allergy Verified 07/28/18 23:09 Date of admission: 07/29/18 15:54 [facility]: [facility] - Constitutional Vitals: Temp Pulse Resp BP Pulse Ox 97.8 F 76 16 130/86 96 08/01/18 06:58 08/01/18 06:58 08/01/18 06:58 08/01/18 06:58 08/01/18 06:58 General appearance: Present: cooperative, mild distress, A&O X 3, pleasant, answers questions appropriately Exam: General: NAD, good eye contact, comfortable appearing Thoracic: Normal breath sounds b/l, no wheezing or crackles Cardio: Normal S1 and S2, regular rate and rhythm, no murmurs Abdomen: Soft, nontender, nondistended. Extremities: Warm, well perfused. DP pulses 2+ b/l. No edema. Skin: Intact. No rashes, bruises, or ulcers Neuro: Awake, fully oriented. Speech fluent - Patient Status Disposition: Home, Self-Care Condition: Fair Functional capacity at discharge: independent ambulation Overall status at discharge: patient is progressing back to baseline - Discharge Instructions Instructions: Pancreatitis (DC) Follow [facility] With: [facility] [Primary Care Provider] - - Diet and Activity Activity: resume usual activities as tolerated Diet: other (Full liquid diet for a few days, then slowly advance to soft and then regular diet. Avoid heavy/fatty foods like milkshakes, hamburgers, etc.)
[2018-08-01] MEDS ORDERED: *HR* Warfarin 5 MG TABLET PO ONE (18:00)
== END 2018-08-01 13:49 | disposition home or self-care (01) | DRG 440 ==
LOC: 3ANU 14:35 → EMEROOARM 14:35 → SUATTDRO 18:41 → 3ANU 20:34
PROVIDERS: ADMIT Student in an Organized Health Care Education/Training Program; ATTEND Internal Medicine

== ENCOUNTER 2018-08-27 14:41 | Inpatient (IN) ==
[2018-08-27] MEDS ORDERED: 0.9 % Sodium Chloride 1,000 ML IVC ONE ×2 (15:29→19:46)
[2018-08-27] MEDS ORDERED: *HR* Morphine 2 MG/ML SYRINGE IVP ONE (15:29)
[2018-08-27] MEDS ORDERED: Ondansetron 4 MG/2 ML VIAL IVP ONE (15:29)
[2018-08-27] MEDS ORDERED: Isovue-370 500 ML BOTTLE IVP ONE (15:45)
--- NOTE | 2018-08-27 15:50 | Emergency Department Note ---
Disposition Clinical Impression: Pancreatitis Qualifiers: Chronicity: acute Pancreatitis type: other Acute pancreatitis complication: unspecified Qualified Code(s): K85.80 - Other acute pancreatitis without necrosis or infection Disposition: Admitted As Inpatient Condition: Fair Time of Disposition: 00:19 Abdominal Pain HPI - General Chief Complaint: ED Abdominal Pain Stated Complaint: abd pain Time Seen by Provider: 08/27/18 15:18 Source: patient Nursing Notes Reviewed: Yes Vital Signs Reviewed: Yes - History of Present Illness HPI Narrative: 32yo male with history of HTN on amylodipine, depression on zoloft, HLD on gemfibrozil, hx spleenic blood clot on warfarin, hxs recurrent necrotizing pancreatitis secondary to hypertrigliceridemia. Presents for RUQ pain, cramping in nature. Onset 02:30 this morning (awoke him from sleep; approximately 13hrs prior to arrival). Initially moderate in severity which progressed throughout the day to become severe in the 3-4 hours prior to arrival. Now radiates to his back. Similary in character and intensity to prior episodes of pancreatitis. Patient had necrotizing pancreatitis treated at [place] last September. He also had pancreatitis treated at this facility and discharge 26 days ago. ROS: Positive: Right upper quadrant cramping severe pain Negative: Fever, chills, nausea, vomiting, chest pains, palpitations, diarrhea, constipation, dysuria, trauma, cough or dyspnea, diaphoresis Pain Scale: 8 - Related Data Home Medications Medication Instructions Recorded Confirmed Acamprosate Calcium 666 mg PO TID PRN 07/28/18 07/28/18 Acetaminophen [Pain Reliever] 1,000 mg PO Q8H PRN MDD 3000MG/24H 07/28/18 07/28/18 Amlodipine Besylate 10 mg PO DAILY 07/28/18 07/28/18 Ergocalciferol (VITAMIN D2) 50,000 unit PO QWEEK 07/28/18 07/28/18 [Vitamin D2] Gemfibrozil [Lopid] 600 mg PO BIDWM 07/28/18 07/28/18 HydrOXYzine Pamoate [Vistaril] 100 mg PO TID PRN 07/28/18 07/28/18 Hyoscyamine Sulfate [Levbid] 0.75 mg PO Q12H 07/28/18 07/28/18 Melatonin [Melatin] 9 mg PO HS PRN 07/28/18 07/28/18 Nicotine Polacrilex [Nicotine 2 mg PO Q2H PRN 07/28/18 07/28/18 Lozenge] Sertraline [Zoloft] 200 mg PO DAILY 07/28/18 07/28/18 Warfarin [Coumadin] 15 mg PO MOWE 07/28/18 07/29/18 Warfarin [Coumadin] 10 mg PO SUTUTHFRSA 07/29/18 07/29/18 Previous Rx's Medication Instructions Recorded Atorvastatin [Lipitor] 40 mg PO DAILY #30 tablet 08/01/18 Allergies Allergy/AdvReac Type Severity Reaction Status Date / Time No Known Allergies Allergy Verified 07/28/18 23:09 All systems ED: reviewed and negative except as stated. Review of Systems: As Per HPI Abdominal Pain PMH - Past Medical History Medical history: Reports: hyperlipidemia, hypertension, other Male Surgical History: Reports: Tonsillectomy Psychiatric history: Reports: depression - Social History Smoking status: Light tobacco smoker Alcohol use: Reports: rarely Drug use: Reports: marijuana Physical Exam Vital Signs Reviewed General: Patient is alert, oriented, and in moderate distress from his abdominal pain. Head: atraumatic, normocephalic Eye: normal appearance, PERRL, EOMI, no scleral icterus, no conjunctival injection ENT: mucous membranes moist, normal external ear exam Neck: normal inspection, trachea midline, full ROM Chest: normal inspection, symmetric chest rise Respiratory: Good respiratory effort. Bilateral breath sounds are clear without wheezing, crackles, or rhonchi. Cardiovascular: Regular rate and rhythm. No clicks, rubs, gallops, or murmors. Normal heart sounds. Abdomen: Bowel sounds present normoactive. Abdomen is soft, nondistended. Mod erate right upper quadrant tenderness. No guarding or rebound. No organomegaly noted. Musculoskeletal: Spontaneously moving all extremities. Skin: warm, dry, intact. Neuro: GCS 15. No focal neurologic deficits observed. Psych: Patient's affect is appropriate for situation. - General Limitations: no limitations General appearance: alert, in no apparent distress Course Course Narrative: AFter 6mg IV morphine patient's pain improved from 8/10 to 7/10. Serum hematology shows mild leukocytosis. Serum chemistry shows hyponatremia. Hypovolemic hyponatremia. INR is low at 1.6. Suspicious the patient may not be taking his Coumadin. CT abdomen pelvis with IV contrast shows a creatinine inflammation. At this time, patient has a complicated pancreatitis. I discussed the above with the patient. We discussed in detail how the pancreas functions in terms of enzymes and how pancreatitis is appropriate enzymatic activity causing, and simple terms, autodigestion. 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 We had an indepth conversation regarding his need for self-care and compliance with medical management as well as compliance with dietary changes. I discussed the above with the admitting hospitalist, Dr. Staley, who agrees to accept the patient for continued evaluation monitoring of his uncomplicated pancreatitis. Patient's triglycerides were checked on admission. He has hypertriglyceridemia triglycerides 3496. Concern for noncompliance. Abdomen/Pelvis CT 08/27/18 15:45 IMPRESSION: Persistent inflammatory change surrounding the pancreas, increased compared to 07/28/2018. Hypodensity in the region the pancreatic tail appears similar. D/ / Jeevan Deluna MD / Jeevan Deluna MD Interpreting Provider: Jeevan Deluna MD Vital Signs Temperature 98.9 F 08/27/18 14:44 Pulse Rate 129 08/27/18 14:44 Respiratory Rate 20 08/27/18 14:44 Blood Pressure 176/118 08/27/18 14:44 O2 Sat by Pulse Oximetry 97 08/27/18 14:44 Temperature 98.6 F 08/27/18 20:58 Pulse Rate 113 08/27/18 20:58 Respiratory Rate 19 08/27/18 20:58 Blood Pressure 161/98 08/27/18 20:58 O2 Sat by Pulse Oximetry 95 08/27/18 20:58 Oxygen Delivery Oxygen Delivery Room Air Abdominal Pain - Lab Data Result diagrams: 08/27/18 15:49 08/27/18 15:49 Lab Results 08/27/18 08/27/18 08/27/18 Range/Units 15:49 15:49 15:49 WBC 15.4 H (4.3-11.1) K/mcL RBC 4.95 (4.19-5.50) M/mcL Hgb 15.5 (12.9-16.9) g/dL Hct 43.0 (37.5-50.1) % MCV 86.9 (83.0-100.0) fL MCH 31.3 (28.0-33.3) pg MCHC 36.0 H (31.6-35.5) g/dL RDW 16.0 H (11.5-14.5) % Plt Count 267 (140-400) K/mcL MPV 9.6 (9.4-12.4) fL Immature Gran % 0.5 (0-4) % Seg Neutrophils % 81.4 % Lymphocytes % 12.2 % Monocytes % 5.3 % Eosinophils % 0.1 % Basophils % 0.5 % Neutrophils # 12.5 H (1.6-8.9) K/mcL Lymphocytes # 1.9 (0.6-4.6) K/mcL Monocytes # 0.8 (0.0-1.3) K/mcL Eosinophils # 0.0 (0.0-0.6) K/mcL Basophils # 0.1 (0.0-0.2) K/mcL PT 13.7 H (9.4-12.1) Seconds INR 1.2 APTT 29.5 (26.0-36.0) Seconds Sodium 124 L (136-145) mEq/L Potassium 4.0 (3.5-5.1) mEq/L Chloride 94 L (98-107) mEq/L Carbon Dioxide 18 L (23-29) mEq/L BUN 13 (6-20) mg/dL Creatinine 0.85 (0.70-1.30) mg/dL Est GFR ( Amer) > 60 (> 60) Est GFR (Non-Af Amer) > 60 (> 60) BUN/Creatinine Ratio 15 (6-26) Glucose 101 (70-105) mg/dL Calculated Osmolality 258 L (280-300) Lactic Acid (0.5-2.2) mmol/L Calcium 9.2 (8.6-10.3) mg/dL Magnesium (1.6-2.6) mg/dL Total Bilirubin 0.5 (0.3-1.0) mg/dL Direct Bilirubin 0.1 (0.0-0.2) mg/dL Indirect Bilirubin 0.4 (0.0-1.2) mg/dL AST 43 H (13-39) Units/L ALT 32 (7-52) Units/L Alkaline Phosphatase 86 (34-104) Units/L Serum Total Protein 7.3 (6.4-8.9) g/dL Albumin 4.8 (3.5-5.7) g/dL Globulin 2.5 (2.4-3.5) g/dL Albumin/Globulin Ratio 1.9 (1.1-2.2) Triglycerides (< 150) mg/dL Cholesterol (< 200) mg/dL LDL Cholesterol, Calc VLDL Cholesterol, Calc HDL Cholesterol (40-59) mg/dL Cholesterol/HDL Ratio (0-4.9) Lipase 122 H (11-82) Units/L Urine Color (Yellow) Urine Clarity (Clear) Urine pH (5.0-8.0) pH Units Ur Specific Drum[place] (1.010-1.025) Urine Protein (Neg-Trace) mg/dL Urine Glucose (UA) (Normal) mg/dL Urine Ketones (Negative) mg/dL Urine Blood (Negative) Urine Nitrite (Negative) Urine Bilirubin (Negative) Urine Urobilinogen (Normal) mg/dL Ur Leukocyte Esterase (Negative) Ur Culture Indicated? (NO) Urine Osmolality (300-1090) mOsm/kg Urine Creatinine mg/dL Urine Sodium mEq/L 08/27/18 08/27/18 08/27/18 Range/Units 15:49 16:55 16:55 WBC (4.3-11.1) K/mcL RBC (4.19-5.50) M/mcL Hgb (12.9-16.9) g/dL Hct (37.5-50.1) % MCV (83.0-100.0) fL MCH (28.0-33.3) pg MCHC (31.6-35.5) g/dL RDW (11.5-14.5) % Plt Count (140-400) K/mcL MPV (9.4-12.4) fL Immature Gran % (0-4) % Seg Neutrophils % % Lymphocytes % % Monocytes % % Eosinophils % % Basophils % % Neutrophils # (1.6-8.9) K/mcL Lymphocytes # (0.6-4.6) K/mcL Monocytes # (0.0-1.3) K/mcL Eosinophils # (0.0-0.6) K/mcL Basophils # (0.0-0.2) K/mcL PT (9.4-12.1) Seconds INR APTT (26.0-36.0) Seconds Sodium (136-145) mEq/L Potassium (3.5-5.1) mEq/L Chloride (98-107) mEq/L Carbon Dioxide (23-29) mEq/L BUN (6-20) mg/dL Creatinine (0.70-1.30) mg/dL Est GFR ( Amer) (> 60) Est GFR (Non-Af Amer) (> 60) BUN/Creatinine Ratio (6-26) Glucose (70-105) mg/dL Calculated Osmolality (280-300) Lactic Acid 1.9 (0.5-2.2) mmol/L Calcium (8.6-10.3) mg/dL Magnesium (1.6-2.6) mg/dL Total Bilirubin (0.3-1.0) mg/dL Direct Bilirubin (0.0-0.2) mg/dL Indirect Bilirubin (0.0-1.2) mg/dL AST (13-39) Units/L ALT (7-52) Units/L Alkaline Phosphatase (34-104) Units/L Serum Total Protein (6.4-8.9) g/dL Albumin (3.5-5.7) g/dL Globulin (2.4-3.5) g/dL Albumin/Globulin Ratio (1.1-2.2) Triglycerides (< 150) mg/dL Cholesterol (< 200) mg/dL LDL Cholesterol, Calc VLDL Cholesterol, Calc HDL Cholesterol (40-59) mg/dL Cholesterol/HDL Ratio (0-4.9) Lipase (11-82) Units/L Urine Color Yellow (Yellow) Urine Clarity Clear (Clear) Urine pH 6.0 (5.0-8.0) pH Units Ur Specific Drum[place] 1.020 (1.010-1.025) Urine Protein Negative (Neg-Trace) mg/dL Urine Glucose (UA) Normal (Normal) mg/dL Urine Ketones Negative (Negative) mg/dL Urine Blood Negative (Negative) Urine Nitrite Negative (Negative) Urine Bilirubin Negative (Negative) Urine Urobilinogen Normal (Normal) mg/dL Ur Leukocyte Esterase Negative (Negative) Ur Culture Indicated? NO (NO) Urine Osmolality (300-1090) mOsm/kg Urine Creatinine 105 mg/dL Urine Sodium 16.7 mEq/L 08/27/18 08/27/18 08/27/18 Range/Units 16:55 20:24 20:24 WBC (4.3-11.1) K/mcL RBC (4.19-5.50) M/mcL Hgb (12.9-16.9) g/dL Hct (37.5-50.1) % MCV (83.0-100.0) fL MCH (28.0-33.3) pg MCHC (31.6-35.5) g/dL RDW (11.5-14.5) % Plt Count (140-400) K/mcL MPV (9.4-12.4) fL Immature Gran % (0-4) % Seg Neutrophils % % Lymphocytes % % Monocytes % % Eosinophils % % Basophils % % Neutrophils # (1.6-8.9) K/mcL Lymphocytes # (0.6-4.6) K/mcL Monocytes # (0.0-1.3) K/mcL Eosinophils # (0.0-0.6) K/mcL Basophils # (0.0-0.2) K/mcL PT (9.4-12.1) Seconds INR APTT (26.0-36.0) Seconds Sodium (136-145) mEq/L Potassium (3.5-5.1) mEq/L Chloride (98-107) mEq/L Carbon Dioxide (23-29) mEq/L BUN (6-20) mg/dL Creatinine (0.70-1.30) mg/dL Est GFR ( Amer) (> 60) Est GFR (Non-Af Amer) (> 60) BUN/Creatinine Ratio (6-26) Glucose (70-105) mg/dL Calculated Osmolality (280-300) Lactic Acid (0.5-2.2) mmol/L Calcium (8.6-10.3) mg/dL Magnesium 1.7 (1.6-2.6) mg/dL Total Bilirubin (0.3-1.0) mg/dL Direct Bilirubin (0.0-0.2) mg/dL Indirect Bilirubin (0.0-1.2) mg/dL AST (13-39) Units/L ALT (7-52) Units/L Alkaline Phosphatase (34-104) Units/L Serum Total Protein (6.4-8.9) g/dL Albumin (3.5-5.7) g/dL Globulin (2.4-3.5) g/dL Albumin/Globulin Ratio (1.1-2.2) Triglycerides 3496 H (< 150) mg/dL Cholesterol 468 H (< 200) mg/dL LDL Cholesterol, Calc TNP VLDL Cholesterol, Calc TNP HDL Cholesterol 24 L (40-59) mg/dL Cholesterol/HDL Ratio 19.5 H (0-4.9) Lipase (11-82) Units/L Urine Color (Yellow) Urine Clarity (Clear) Urine pH (5.0-8.0) pH Units Ur Specific [place] (1.010-1.025) Urine Protein (Neg-Trace) mg/dL Urine Glucose (UA) (Normal) mg/dL Urine Ketones (Negative) mg/dL Urine Blood (Negative) Urine Nitrite (Negative) Urine Bilirubin (Negative) Urine Urobilinogen (Normal) mg/dL Ur Leukocyte Esterase (Negative) Ur Culture Indicated? (NO) Urine Osmolality 397 (300-1090) mOsm/kg Urine Creatinine mg/dL Urine Sodium mEq/L Attestation Statement - Attestation Attestation: Resident Attestation: I examined this patient and my medical decision making was reviewed with the Resident Physician. I agree with the documented findings, disposition and treatment plan as described except to the extent set forth below. We independently had [id number] contact with the patient. Patient with a history of pancreatitis related to hyper triglyceridemia presenting for evaluation of epigastric and left upper quadrant abdominal pain. Patient's overall symptoms started today and getting worse. Patient unable to tolerate food since last night. Patient will undergo further evaluation for pancreatitis. Patient with mild distress, abdomen with tenderness epigastric region without rebound or guarding. Patient has required multiple doses of pain medication with the emergency department; patient will require admission for further evaluation and management.
[2018-08-27 16:08] LABS: Basophils # 0.1 K/mcL (0.0-0.2); Basophils % 0.5 %; Eosinophils % 0.1 %; Hemoglobin 15.5 g/dL (12.9-16.9); Immature Granulocytes % 0.5 % (0-4); Lymphocytes # 1.9 K/mcL (0.6-4.6); Lymphocytes % 12.2 %; Mean Corpuscular Hemoglobin 31.3 pg (28.0-33.3); Mean Corpuscular Volume 86.9 fL (83.0-100.0); Mean Platelet Volume 9.6 fL (9.4-12.4); Monocytes # 0.8 K/mcL (0.0-1.3); Monocytes % 5.3 %; Neutrophils # 12.5 K/mcL (1.6-8.9); Platelet Count 267 K/mcL (140-400); Red Blood Count 4.95 M/mcL (4.19-5.50); Segmented Neutrophils % 81.4 %
[2018-08-27 16:17] LABS: INR 1.2; Prothrombin Time 13.7 Seconds (9.4-12.1)
[2018-08-27 16:20] LABS: Activated Partial Thrombo Time 29.5 Seconds (26.0-36.0)
[2018-08-27] MEDS ORDERED: *HR* HYDROmorphone (PF) 1 MG/ML SYRINGE IVP ONE ×3 (16:30→18:53)
[2018-08-27 17:14] LABS: Carbon Dioxide 18 mEq/L (23-29); Chloride 94 mEq/L (98-107); Sodium 124 mEq/L (136-145)
[2018-08-27 17:15] LABS: Alanine Aminotransferase 32 Units/L (7-52); Alkaline Phosphatase 86 Units/L (34-104); Aspartate Amino Transferase 43 Units/L (13-39); BUN/Creatinine Ratio 15 (6-26); Bilirubin,Direct 0.1 mg/dL (0.0-0.2); Bilirubin,Indirect 0.4 mg/dL (0.0-1.2); Bilirubin,Total 0.5 mg/dL (0.3-1.0); Blood Urea Nitrogen 13 mg/dL (6-20); Calcium 9.2 mg/dL (8.6-10.3); Glucose 101 mg/dL (70-105); Osmolality,Calculated 258 (280-300); eGFR For Non-African Americans > 60 (> 60)
[2018-08-27 17:16] LABS: Albumin 4.8 g/dL (3.5-5.7); Albumin/Globulin Ratio 1.9 (1.1-2.2); Globulin 2.5 g/dL (2.4-3.5); Lipase 122 Units/L (11-82); Total Protein 7.3 g/dL (6.4-8.9)
[2018-08-27 17:32] LABS: Bilirubin,Urine Negative (Negative); Blood,Urine Negative (Negative); Clarity,Urine Clear (Clear); Color,Urine Yellow (Yellow); Glucose,Urine (UA) Normal (Normal); Ketones,Urine Negative (Negative); Leukocyte Esterase,Urine Negative (Negative); Nitrite,Urine Negative (Negative); Protein,Urine Negative (Neg-Trace); Urobilinogen,Urine Normal (Normal)
[2018-08-27] MEDS ORDERED: Meropenem 1,000 MG in 0.9 % Sodium Chloride Mini Bag 100 ML IVPB STA (19:45)
--- NOTE | 2018-08-27 19:46 | Internal Med History&Physical ---
<Nacho Andersen S - Last Filed: 08/27/18 23:08> Date of Encounter: 08/27/18 Time of Encounter: 20:10 Internal Medicine - H&P: HPI Chief complaint: pancreatitis Admitted From: Home Plans for Post Hospital Care: Home History of present illness: Mr. Scanlon is a 32 year old male with PMH of hyperlipidemia, hypertension, and depression/anxiety. He is here for abdominal pain that he states is similar to his previous episode of pancreatitis. He has had two previous episodes of pancreatitis and his pain is very similar. It is in the epigastric region and radiates across his chest and some to his back. It is crampy in nature rated as a 9/10 that awoke him from sleep around 02:30. He had one episode of vomiting and has been very nauseous. He denies diarrhea. He does have fevers/chills and diaphoresis. He was treated last September in [facility] for necrotizing pancreatitis and had pancreatitis episode earlier this month. He also has a hx of splenic blood clot and is on coumadin. He states that he doesn't take his medications as directed. He states that he doesn't always take his coumadin and sometimes forgets his gemfibrozil. In the ER he was found to have a lipase of [address] imaging showed inflammatory changes around the pancreas. He was given meropenem, pain control and IV fluids. He was found to have a sodium of 124. Past Med Surg Social Fam HX - Past Medical History Medical history: hyperlipidemia, hypertension, other Additional medical history: necrotizing pancreatitis-2018 Psychiatric history: depression - Social History Smoking Status: Light tobacco smoker Smokeless Tobacco Status: No Alcohol use: rarely Drug use: marijuana - Family History Maternal Grandmother Adopted: No Race: Hx Family Endocrine Disorder: Yes Father Adopted: No Race: Hx Family GI Disorders: Yes (pancreatitis) Internal Medicine - H&P: Meds Acamprosate Calcium 666 mg PO TID PRN 07/28/18 [History] Acetaminophen [Pain Reliever] 1,000 mg PO Q8H PRN MDD 3000MG/24H 07/28/18 [History] Amlodipine Besylate 10 mg PO DAILY 07/28/18 [History] Ergocalciferol (VITAMIN D2) [Vitamin D2] 50,000 unit PO QWEEK 07/28/18 [History] Gemfibrozil [Lopid] 600 mg PO BIDWM 07/28/18 [History] HydrOXYzine Pamoate [Vistaril] 100 mg PO TID PRN 07/28/18 [History] Hyoscyamine Sulfate [Levbid] 0.75 mg PO Q12H 07/28/18 [History] Melatonin [Melatin] 9 mg PO HS PRN 07/28/18 [History] Nicotine Polacrilex [Nicotine Lozenge] 2 mg PO Q2H PRN 07/28/18 [History] Sertraline [Zoloft] 200 mg PO DAILY 07/28/18 [History] Warfarin [Coumadin] 15 mg PO MOWE 07/28/18 [History] Warfarin [Coumadin] 10 mg PO SUTUTHFRSA 07/29/18 [History] Atorvastatin [Lipitor] 40 mg PO DAILY #30 tablet 08/01/18 [Rx] Allergy/AdvReac Type Severity Reaction Status Date / Time No Known Allergies Allergy Verified 07/28/18 23:09 All Systems PM: A 10-system review of systems was performed and is negative for pertinent findin gs except as documented above in the HPI. - Constitutional Constitutional: anorexia, chills, fever(s) - EENT Eyes: no blurry vision, no change in vision Ears: no tinnitus - Cardiovascular Cardiovascular ROS IM: no chest pain, no dyspnea, no dyspnea on exertion - Respiratory Respiratory: no dyspnea, no dyspnea on exertion, no chest congestion - Gastrointestinal Gastrointestinal: abdominal pain, nausea, vomiting, no diarrhea - Genitourinary Genitourinary ROS male: no difficulty urinating, no hematuria - Musculoskeletal Musculoskeletal ROS IM: no stiffness, no tingling - Integumentary Integumentary IM: no rash, no unusual bruising - Neurological Neurological ROS: no numbness, no tremor(s) - Psychiatric Psychiatric: anxiety, depression - Endocrine Endocrine IM: fatigue - Hematologic/Lymphatic Hematologic/Lymphatic: no easy bleeding, no easy bruising - Constitutional Vitals: Temp Pulse Resp BP Pulse Ox 98.9 F 112 18 187/121 98 08/27/18 14:44 08/27/18 17:57 08/27/18 17:57 08/27/18 17:57 08/27/18 17:57 Exam: General - AOx3, mild distress, diaphoretic HEENT - NCAT, no scleral icterus, dry MM Neck - supple, no JVD Cardio - tacycardia, s1s2, cta no MRG lungs - CTAB, no rhonchi/wheezing/rales, not in respiratory distress abd - mild epigastric tenderness, no rebound or guarding, no peritoneal signs back - no bruising noted to the flank regions nor to the umbilical regions extremities - moves all extremities equally, no pitting edema bilateral LE skin - no bruising, no rash, no open wounds neuro - no FND, sensation intact psych - appears mildly anxious Internal Med - H&P Results - Labs CBC & Chem 7: 08/27/18 15:49 08/27/18 15:49 Labs: Short CBC 08/27/18 Range/Units 15:49 WBC 15.4 H (4.3-11.1) K/mcL Hgb 15.5 (12.9-16.9) g/dL Hct 43.0 (37.5-50.1) % Plt Count 267 (140-400) K/mcL Neutrophils # 12.5 H (1.6-8.9) K/mcL BMP 08/27/18 15:49 Sodium 124 L Potassium 4.0 Chloride 94 L Carbon Dioxide 18 L BUN 13 Creatinine 0.85 Glucose 101 Calcium 9.2 Liver Function 08/27/18 Range/Units 15:49 Total Bilirubin 0.5 (0.3-1.0) mg/dL Direct Bilirubin 0.1 (0.0-0.2) mg/dL AST 43 H (13-39) Units/L ALT 32 (7-52) Units/L Alkaline Phosphatase 86 (34-104) Units/L Albumin 4.8 (3.5-5.7) g/dL Urine 08/27/18 Range/Units 16:55 Urine Color Yellow (Yellow) Urine Clarity Clear (Clear) Urine pH 6.0 (5.0-8.0) pH Units Ur Specific [place] 1.020 (1.010-1.025) Urine Protein Negative (Neg-Trace) mg/dL Urine Glucose (UA) Normal (Normal) mg/dL - Impressions ITS Impressions Abdomen/Pelvis CT 08/27/18 15:45 IMPRESSION: Persistent inflammatory change surrounding the pancreas, increased compared to 07/28/2018. Hypodensity in the region the pancreatic tail appears similar. D/ / Jeevan Deluna MD / Jeevan Deluna MD Interpreting Provider: Jeevan Deluna MD - Assessment and Plan (1) Pancreatitis Current Visit: Yes Status: Acute Assessment and plan: Pt with hx of recurrent acute pancreatitis secondary to hypertriglyceridemia - presents with sudden onset abdominal pain awakening him from sleep - previous triglyceride level 844 Pt has had previous episodes of pancreatitis, including necrotizing pancreatitis in September 2017 Reports family hx of recurrent pancreatitis in the father Gallbladder US negative on previous admission 07/29/18 Denies alcohol abuse Admits to noncompliance with medications Lipase 122 on admission Meets SIRS criteria for leukocytosis, HR CT abdomen 07/28 showed stranding of pancreatits head, possible psuedocyst CT abdomen and pelvis from admission There is ill-defined peripancreatic edema and peripancreatic fluid. This surrounds the pancreas and also extends inferiorly along the root of the mesentery. No discrete drainable fluid collection noted. Focal area of hypodensity in the pancreatic tail measures 1.9 cm, similar to prior. inflammatory change extending inferiorly along the root of the mesentery has increased Triglycerides 3439 on repeat of lipid panel testing Plan: - insulin drip for triglycerides BMP q2hr accucheck q1hr TG level q12hr - pain control with SL oxcodone q4hr, toradol q6hr - meropenem q8hr day 1 - continue D5 in 0.9% NS 150cc/hr - consult to GI - telemetry monitoring - blood cx pending - zofran prn nausea - FEN: NPO, fluids as above - DVT prophylaxis: coumadin per pharmacy, heparin drip - dispo: GI to see, pain control, diet, therapeutic INR Qualifiers: Chronicity: acute Pancreatitis type: other Acute pancreatitis complication: unspecified Qualified Code(s): K85.80 - Other acute pancreatitis without necrosis or infection (2) Deep vein thrombosis of splenic vein Current Visit: No Status: Chronic Assessment and plan: Pt with hx of splenic vein thrombosis on coumadin. In the setting of subtheraputic INR, will start heparin drip. (3) Nausea Current Visit: Yes Status: Acute Assessment and plan: zofran prn (4) Obesity (BMI 30.0-34.9) Current Visit: No Status: Chronic Assessment and plan: BMI 32, chronic, counseled. (5) Hyponatremia Current Visit: Yes Status: Acute Assessment and plan: Sodium of 124 on admission with low serum osmolality. Pt appears slightly dry on exam. Urine sodium, creatinine and osmolality pending. (6) Subtherapeutic international normalized ratio (INR) Current Visit: Yes Status: Acute Assessment and plan: INR of 1.2 on admission. Pt takes coumadin for prior hx of splenic abscess. States he is noncompliant with taking rx. Pharmacy to dose coumadin. Heparin drip. (7) DVT prophylaxis Current Visit: Yes Status: Acute Assessment and plan: sq heparin (8) Abdominal pain Current Visit: Yes Status: Acute Assessment and plan: 2/2 acute pancreatitis. Pain control as above. Qualifiers: Abdominal location: epigastric Qualified Code(s): R10.13 - Epigastric pain (9) Hypertriglyceridemia Current Visit: No Status: Chronic Assessment and plan: Previous TG level 844. Denies family hx of congenital lipid d/o. See above for management. On gemfibrozil, states is noncompliant with it. (10) Hypertension Current Visit: No Status: Chronic Assessment and plan: chronic. SBP in 160's , likely secondary to pain. Will add prn lopressor ivp q6hr for SBP>160 and pain control. Qualifiers: Hypertension type: essential hypertension Qualified Code(s): I10 - Essential (primary) hypertension - Time Spent With Patient Total time spent is greater than 50% in coordination of care (as documented) at patient's floor/unit and/or counseling patient: 25 - 35 minutes <Hector Gray - Last Filed: 08/28/18 03:40> Date of Encounter: 08/27/18 Internal Medicine - H&P: HPI History of present illness: Mr. Scanlon is a 32 year old male All Systems PM: A 10-system review of systems was performed and is negative for pertinent findings except as documented above in the HPI. - Constitutional Vitals: Temp Pulse Resp BP Pulse Ox 98.5 F 95 19 142/88 95 08/28/18 00:31 08/28/18 00:31 08/28/18 00:31 08/28/18 00:31 08/28/18 00:31 Internal Med - H&P Results - Labs CBC & Chem 7: 08/28/18 02:40 08/28/18 00:41 Labs: Short CBC 08/27/18 08/28/18 Range/Units 15:49 02:40 WBC 15.4 H 12.3 H (4.3-11.1) K/mcL Hgb 15.5 14.9 (12.9-16.9) g/dL Hct 43.0 43.3 (37.5-50.1) % Plt Count 267 246 (140-400) K/mcL Neutrophils # 12.5 H (1.6-8.9) K/mcL BMP 08/27/18 08/27/18 08/28/18 15:49 22:57 00:41 Sodium 124 L 126 L 127 L Potassium 4.0 3.4 L 3.8 Chloride 94 L 95 L 94 L Carbon Dioxide 18 L 17 L 21 L BUN 13 7 8 Creatinine 0.85 1.25 1.11 Glucose 101 85 114 H Calcium 9.2 9.1 9.0 Liver Function 08/27/18 Range/Units 15:49 Total Bilirubin 0.5 (0.3-1.0) mg/dL Direct Bilirubin 0.1 (0.0-0.2) mg/dL AST 43 H (13-39) Units/L ALT 32 (7-52) Units/L Alkaline Phosphatase 86 (34-104) Units/L Albumin 4.8 (3.5-5.7) g/dL Urine 08/27/18 Range/Units 16:55 Urine Color Yellow (Yellow) Urine Clarity Clear (Clear) Urine pH 6.0 (5.0-8.0) pH Units Ur Specific [place] 1.020 (1.010-1.025) Urine Protein Negative (Neg-Trace) mg/dL Urine Glucose (UA) Normal (Normal) mg/dL - Impressions ITS Impressions Abdomen/Pelvis CT 08/27/18 15:45 IMPRESSION: Persistent inflammatory change surrounding the pancreas, increased compared to 07/28/2018. Hypodensity in the region the pancreatic tail appears similar. D/ / Jeevan Deluna MD / Jeevan Deluna MD Interpreting Provider: Jeevan Deluna MD - Time Spent With Patient Total time spent is greater than 50% in coordination of care (as documented) at patient's floor/unit and/or counseling patient: - Attending Attestation I saw and evaluated the patient. I reviewed the residents note, performed my own physical examination and agree with findings and plan as documented in the residents note. Patient seen and examined on 08/27/18. Patient presents with pancreatitis, likely secondary to elevated triglycerides. Patient also subtherapeutic INR as well. Started heparin drip and insulin as well. patient also has low sodium, and with repeat BMP has improved to 127. Patient on D5 sodium as well due to insulin drip, we will continue to monitor rise of sodium and switch fluids if correcting too fast. Pain management as required., Accuchecks Q1H, BMP Q2H and Triglyceride checks Q12H. Patient NPO for now. GI to see for further recommendations.
[2018-08-27] MEDS ORDERED: Naloxone 0.4 MG/ML INJ IVP PRN (20:09)
[2018-08-27] MEDS ORDERED: *HR* Heparin 5,000 UNIT/ML VIAL SQ SCH (20:15)
[2018-08-27 21:20] LABS: Chol/HDL Ratio 19.5 (0-4.9); Cholesterol 468 mg/dL (< 200); HDL Cholesterol 24 mg/dL (40-59); Triglycerides 3496 mg/dL (< 150)
[2018-08-27] MEDS ORDERED: OXYCODONE Oral CONC 10 MG/0.5 ML ORAL.SYG SL PRN ×2 (21:20→23:07)
[2018-08-27] MEDS: Ondansetron 4 MG/2 ML VIAL IVP PRN (21:29)
[2018-08-27 22:29] LABS: Sodium, Urine 16.7 mEq/L
[2018-08-27] MEDS ORDERED: *HR* Heparin 5,000 UNIT/ML VIAL IVP ONE (22:36)
[2018-08-27] MEDS ORDERED: *HR* Heparin 5,000 UNIT/ML VIAL IVP PRN ×2 (22:36)
[2018-08-27] MEDS ORDERED: D5% in 0.9% NACL 1,000 ML IVC SCH (22:45)
[2018-08-27] MEDS ORDERED: Heparin 25,000 UNIT/250 ML D5W 25,000 UNIT/250 ML IV.SOLN IVC SCH (22:45)
[2018-08-27] MEDS ORDERED: Warfarin perPT PO PRN (23:15)
[2018-08-27] MEDS: Ketorolac 30 MG/ML VIAL IVP PRN (23:50)
[2018-08-27] MEDS: *HR* Metoprolol 5 MG/5 ML VIAL IVP SCH (23:51)
[2018-08-27] MEDS: Insulin Human Regular 100 UNIT in 0.9 % Sodium Chloride 100 ML IVC SCH (23:53)
[2018-08-28 00:21] LABS: BUN/Creatinine Ratio 6 (6-26); Blood Urea Nitrogen 7 mg/dL (6-20); Calcium 9.1 mg/dL (8.6-10.3); Carbon Dioxide 17 mEq/L (23-29); Chloride 95 mEq/L (98-107); Glucose 85 mg/dL (70-105); Osmolality,Calculated 259 (280-300); Potassium 3.4 mEq/L (3.5-5.1); Sodium 126 mEq/L (136-145); eGFR For Non-African Americans > 60 (> 60)
[2018-08-28] MEDS ORDERED: Potassium Chloride 40 MEQ, Lidocaine 1% 2 ML in D5% in Water 500 ML IVPB ONE (01:26)
[2018-08-28 01:40] LABS: BUN/Creatinine Ratio 7 (6-26); Blood Urea Nitrogen 8 mg/dL (6-20); Carbon Dioxide 21 mEq/L (23-29); Chloride 94 mEq/L (98-107); Glucose 114 mg/dL (70-105); Osmolality,Calculated 263 (280-300); Potassium 3.8 mEq/L (3.5-5.1); Sodium 127 mEq/L (136-145); eGFR For Non-African Americans > 60 (> 60)
[2018-08-28 03:23] LABS: Hematocrit 43.3 % (37.5-50.1); Hemoglobin 14.9 g/dL (12.9-16.9); Mean Corpuscular HGB Conc 34.4 g/dL (31.6-35.5); Mean Corpuscular Hemoglobin 30.4 pg (28.0-33.3); Mean Corpuscular Volume 88.4 fL (83.0-100.0); Mean Platelet Volume 9.9 fL (9.4-12.4); Platelet Count 246 K/mcL (140-400); Red Cell Distribution Width 15.9 % (11.5-14.5)
[2018-08-28 03:37] LABS: INR 1.3; Prothrombin Time 14.7 Seconds (9.4-12.1)
[2018-08-28 03:45] LABS: Alanine Aminotransferase 23 Units/L (7-52); Albumin 4.1 g/dL (3.5-5.7); Albumin/Globulin Ratio 1.6 (1.1-2.2); Alkaline Phosphatase 76 Units/L (34-104); Aspartate Amino Transferase 21 Units/L (13-39); BUN/Creatinine Ratio 8 (6-26); Bilirubin,Total 0.8 mg/dL (0.3-1.0); Blood Urea Nitrogen 8 mg/dL (6-20); Calcium 8.7 mg/dL (8.6-10.3); Carbon Dioxide 18 mEq/L (23-29); Chloride 97 mEq/L (98-107); Globulin 2.6 g/dL (2.4-3.5); Glucose 66 mg/dL (70-105); Osmolality,Calculated 265 (280-300); Potassium 3.1 mEq/L (3.5-5.1); Sodium 129 mEq/L (136-145); Total Protein 6.7 g/dL (6.4-8.9); eGFR For Non-African Americans > 60 (> 60)
[2018-08-28] MEDS ORDERED: Meropenem 1,000 MG in Water for inj. (sterile) 20 ML 10 ML IVP SCH (04:00)
[2018-08-28] MEDS ORDERED: D5% in 0.45% NACL 1,000 ML IVC SCH (04:30)
[2018-08-28] MEDS: *HR* Metoprolol 5 MG/5 ML VIAL IVP SCH (05:03)
[2018-08-28] MEDS: Ketorolac 30 MG/ML VIAL IVP PRN (05:03)
[2018-08-28] MEDS: *HR* Dextrose 50 % in Water (Syg) 50 ML SYRINGE IVP PRN ×2 (05:07→07:22)
[2018-08-28 05:50] LABS: BUN/Creatinine Ratio 8 (6-26); Blood Urea Nitrogen 7 mg/dL (6-20); Calcium 8.4 mg/dL (8.6-10.3); Carbon Dioxide 19 mEq/L (23-29); Chloride 98 mEq/L (98-107); Glucose 61 mg/dL (70-105); Osmolality,Calculated 262 (280-300); Potassium 3.5 mEq/L (3.5-5.1); Sodium 128 mEq/L (136-145); eGFR For Non-African Americans > 60 (> 60)
[2018-08-28] MEDS: D5% in 0.45% NACL 1,000 ML IVC SCH ×2 (06:51→07:26)
[2018-08-28] MEDS: OXYCODONE Oral CONC 10 MG/0.5 ML ORAL.SYG SL PRN ×3 (07:58→22:32)
[2018-08-28] MEDS ORDERED: D5% in 0.45% NACL w KCl 20 MEQ/1,000 ML MLS IVC SCH ×3 (08:15→14:00)
[2018-08-28 08:22] LABS: Estimated Average Glucose 134 mg/dl; Hemoglobin A1C 6.3 %
--- NOTE | 2018-08-28 08:24 | Internal Med Progress Note ---
<Hugh Christian - Last Filed: 08/28/18 12:54> Hospitalist Progress Note - Encounter Date of Encounter: 08/28/18 Time of Encounter: 09:01 - Subjective Interval History: Mr. Scanlon is a 32 yo M with PMH of necrotizing pancreatitis, HLD, HTN, and anx/dep, p/w abdominal pain. Found to have pancreatitis 2/2 to hypertriglyceridemia. Patient seen and examined at bedside. No acute overnight events. Reports continued abdominal pain and the medication is only helping to a mild degree. Continues to report nausea, but has not vomited again. Denies fevers, chills, chest pain, dyspnea, change in bowels, dysuria, or edema. He does report that he has follow-up with GI in [place] in the future. He does admit to missing some of his doses of gemfibrozil. - Exam Vitals: Temp Pulse Resp BP Pulse Ox 97.7 F 103 20 117/73 97 08/28/18 07:01 08/28/18 07:01 08/28/18 07:01 08/28/18 07:01 08/28/18 07:01 Exam: GEN: No acute distress, A&O3, laying bed HEAD: Atraumatic, normocephalic EENT: Pupils symmetric, sclera white, conjunctiva pink, mucous membranes moist HEART: Regular, tachycardia, normal S1 and S2, no murmurs LUNGS: Clear to auscultation bilaterally, no wheezes, rhonchi, or crackles ABD: Soft, epigastric tenderness, nondistended, bowel sounds present, no guarding or rigidity EXT: No edema noted, pulses 2/4 NEURO: No focal deficits, cooperative with exam - Assessment and Plan (1) Pancreatitis Current Visit: Yes Status: Acute Assessment and Plan: Recurrent pancreatitis 2/2 hypertriglyceridemia Also with pancreatic pseudocyst and hx of necrotizing pancreatitis Continue insulin drip with goal of TG < 500 - accuchecks Q1H and check TG Q12H Change MIVF to D5 0.45 NS with 20meq KCl Check BMP Q3H today to monitor Na and K BCx pending - continue meropenem at this time Continue telemetry Continue zofran Change pain schedule to Q4H NPO at this time, will advance as able GI consulted - appreciate recommendations (2) Hypertriglyceridemia Current Visit: Yes Status: Chronic Assessment and Plan: Plan as above Will resume home meds once taking PO (3) Abdominal pain Current Visit: Yes Status: Acute Assessment and Plan: Change to oxy Q4H PRN Stop toradol - add oxycodone 5mg for mild pain (4) Hypokalemia Current Visit: Yes Status: Acute Assessment and Plan: Add KCl to fluid while on insulin drip - continue to monitor at this time (5) Hyponatremia Current Visit: Yes Status: Acute Assessment and Plan: Euvolemic, hypotonic hyponatemia Likely stress related in setting of pancreatitis Improving, up to 128 Continue MIVF Goal of correction 6-8meq/L in 24 hours (6) Subtherapeutic international normalized ratio (INR) Current Visit: Yes Status: Acute Assessment and Plan: INR 1.3 - will restart coumadin and monitor (7) Hypertension Current Visit: Yes Status: Chronic Assessment and Plan: Lopressor 5mg IV PRN while NPO Once taking PO, will restart home meds (8) Deep vein thrombosis of splenic vein Current Visit: No Status: Chronic Assessment and Plan: Hx of splenic vein thrombosis Will stop heparin drip, and start lovenox BID and transition back to coumadin Continue coumadin with goal INR 2-3 DVT Prophylaxis: on lovenox BID transitioning back to coumadin - Time Spent with Patient Total time spent is greater than 50% in coordination of care (as documented) at patient's floor/unit and/or counseling patient: Internal Medicine: Result - Labs CBC & Chem 7: 08/28/18 02:40 08/28/18 11:18 Labs: Short CBC 08/27/18 08/28/18 Range/Units 15:49 02:40 WBC 15.4 H 12.3 H (4.3-11.1) K/mcL Hgb 15.5 14.9 (12.9-16.9) g/dL Hct 43.0 43.3 (37.5-50.1) % Plt Count 267 246 (140-400) K/mcL Neutrophils # 12.5 H (1.6-8.9) K/mcL BMP 08/27/18 08/27/18 08/28/18 15:49 22:57 00:41 Sodium 124 L 126 L 127 L Potassium 4.0 3.4 L 3.8 Chloride 94 L 95 L 94 L Carbon Dioxide 18 L 17 L 21 L BUN 13 7 8 Creatinine 0.85 1.25 1.11 Glucose 101 85 114 H Calcium 9.2 9.1 9.0 08/28/18 08/28/18 02:40 04:42 Sodium 129 L 128 L Potassium 3.1 L 3.5 Chloride 97 L 98 Carbon Dioxide 18 L 19 L BUN 8 7 Creatinine 1.04 0.89 Glucose 66 L 61 L Calcium 8.7 8.4 L Liver Function 08/27/18 08/28/18 Range/Units 15:49 02:40 Total Bilirubin 0.5 0.8 (0.3-1.0) mg/dL Direct Bilirubin 0.1 (0.0-0.2) mg/dL AST 43 H 21 (13-39) Units/L ALT 32 23 (7-52) Units/L Alkaline Phosphatase 86 76 (34-104) Units/L Albumin 4.8 4.1 (3.5-5.7) g/dL Urine 08/27/18 Range/Units 16:55 Urine Color Yellow (Yellow) Urine Clarity Clear (Clear) Urine pH 6.0 (5.0-8.0) pH Units Ur Specific [place] 1.020 (1.010-1.025) Urine Protein Negative (Neg-Trace) mg/dL Urine Glucose (UA) Normal (Normal) mg/dL - ABG Interpretation ABG results: PT/INR, D-dimer PT 14.7 Seconds (9.4-12.1) H 08/28/18 02:40 - Impressions Impressions Abdomen/Pelvis CT 08/27/18 15:45 IMPRESSION: Persistent inflammatory change surrounding the pancreas, increased compared to 07/28/2018. Hypodensity in the region the pancreatic tail appears similar. D/ / Jeevan Deluna MD / Jeevan Deluna MD Interpreting Provider: Jeevan Deluna MD Consult Discharge Plan - Plan Referrals: NONE,PCP [Primary Care Provider] - <Damian Ya - Last Filed: 08/28/18 16:00> Hospitalist Progress Note - Encounter Date of Encounter: 08/28/18 - Assessment and Plan (1) Pancreatitis Current Visit: Yes Status: Acute (2) Hypertriglyceridemia Current Visit: Yes Status: Chronic (3) Subtherapeutic international normalized ratio (INR) Current Visit: Yes Status: Acute (4) Hyponatremia Current Visit: Yes Status: Acute Internal Medicine: Result - Labs CBC & Chem 7: 08/28/18 02:40 08/28/18 11:18 - Attending Attestation Patient seen and examined independently, including review of objective data including labs. I agree with plan of care as documented above by the resident with the following comments: 32 M w hx recurrent pancreatitis c/b necrotizing pancreatitis, pseudocyst, and splenic vein thrombosis '18, who p/w progressive abd pain and N/V, CT showing p eripanc inflammation, lipase 120, consistent with acute pancreatitis. Also has hyponatremia Na 126, TG 3500. Currently hemodynamically stable and relatively well appearing, does have abd tenderness nonfocal. Pt started on IV insulin overnight and fluids changed to D5 0.45NS, which will now be changed to D5 0.9NS due to persistent hyponatremia. Repeat TG this afternoon down to 2200. Continue fluids, insulin, and pain/nausea support. Appreciate GI consultation. <Hugh Christian - Last Filed: 08/28/18 12:54> (1) Pancreatitis Qualifiers: Chronicity: acute Pancreatitis type: other Acute pancreatitis complication: unspecified Qualified Code(s): K85.80 - Other acute pancreatitis without necrosis or infection (3) Abdominal pain Qualifiers: Abdominal location: epigastric Qualified Code(s): R10.13 - Epigastric pain (7) Hypertension Qualifiers: Hypertension type: essential hypertension Qualified Code(s): I10 - Essential (primary) hypertension <Damian Ya - Last Filed: 08/28/18 16:00> (1) Pancreatitis Qualifiers: Chronicity: acute Pancreatitis type: other Acute pancreatitis complication: unspecified Qualified Code(s): K85.80 - Other acute pancreatitis without necrosis or infection
[2018-08-28 09:18] LABS: BUN/Creatinine Ratio 6 (6-26); Blood Urea Nitrogen 5 mg/dL (6-20); Calcium 8.3 mg/dL (8.6-10.3); Carbon Dioxide 21 mEq/L (23-29); Chloride 98 mEq/L (98-107); Glucose 58 mg/dL (70-105); Osmolality,Calculated 261 (280-300); Potassium 3.7 mEq/L (3.5-5.1); Sodium 128 mEq/L (136-145); eGFR For Non-African Americans > 60 (> 60)
[2018-08-28] MEDS ORDERED: OXYCODONE Oral CONC 10 MG/0.5 ML ORAL.SYG SL STA (09:29)
[2018-08-28] MEDS ORDERED: *HR* Metoprolol 5 MG/5 ML VIAL IVP PRN (09:57)
[2018-08-28] MEDS ORDERED: OXYCODONE Oral CONC 10 MG/0.5 ML ORAL.SYG SL PRN (10:10)
--- NOTE | 2018-08-28 10:54 | Gastroenterology Consult Note ---
<Sara Carter - Last Filed: 08/28/18 10:47> Date of Encounter: 08/28/18 Time of Encounter: 08:50 - Assessment and plan (1) Pancreatitis Current Visit: Yes Status: Acute Assessment and plan: Pt has triglyceride induced pancreatitis. He has had three episodes since September 2017. He is on gemfibrozil but does not take consistently. He is currently being treated with IVF, insulin drip, NPO and pain management. He needs to follow with GI in [facility]. Qualifiers: Chronicity: acute Pancreatitis type: other Acute pancreatitis complication: unspecified Qualified Code(s): K85.80 - Other acute pancreatitis without necrosis or infection (2) Hypertriglyceridemia Current Visit: Yes Status: Chronic (3) Abdominal pain Current Visit: Yes Status: Acute Qualifiers: Abdominal location: epigastric Qualified Code(s): R10.13 - Epigastric pain (4) Deep vein thrombosis of splenic vein Current Visit: No Status: Chronic Assessment and plan: Coumadin on hold, currently on heparin drip - Time Spent With Patient Total time spent is greater than 50% in coordination of care (as documented) at patient's floor/unit and/or counseling patient: GI History of Present Illness - Data of Consult Patient: new to practice Consult date: 08/28/18 Requesting Physician: Yahir Staley MD - Consult Narrative Reason for consult: recurrent pancreatitis History of present illness: PLEASE NOTE, PT WAS SEEN BEFORE THE CONSULT WAS CANCELLED Mr. Scanlon is a 32 year old male with PMH of hyperlipidemia, hypertension, and depression/anxiety. He reports he was admitted last month for pancreatitis and was hospitalied for nerotizing pancreatitis in September 2017. He presented for abdominal pain that he states is similar to his previous episode of pancreatitis. He describes epigastric pain thatradiates across his chest and some to his back. It is crampy in nature rated as a 9/10 that awoke him from sleep around 02:30. He had one episode of vomiting and has been very nauseous. He denies diarrhea. He does have fevers/chills and diaphoresis. He also has a hx of splenic blood clot and is on coumadin. He states that he doesn't take his medications as directed. He states that he doesn't always take his coumadin and sometimes forgets his gemfibrozil. In the ER he was found to have a lipase of 122, triglycerides of [address] imaging showed inflammatory changes around the pancreas, lesion in the pancreatic tail is unchanged. He was given meropenem, pain control and IV fluids. He was started on insulin drip with a goal of triglycerides <500. 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 DERM: denies rash or itching PSYCH: Denies history of anxiety or depression - Constitutional Vitals: Temp Pulse Resp BP Pulse Ox 97.7 F 103 20 117/73 97 08/28/18 07:01 08/28/18 07:01 08/28/18 07:01 08/28/18 07:01 08/28/18 07:01 Exam: CONSTITUTIONAL:alert, no acute distress.HEAD:normocephalic.EYES:no jaundice.NECK:no obvious swelling.HEART:regular rate and rhythm, no murmurs.LUNGS:bilateral good air entry.ABDOMEN:non distended, soft, tender epigastric area, no masses pulpable, no organomegaly.RECTAL EXAM:Deferred.EXTREMITIES:no clubbing, cyanosis or edema.SKIN:no stigmata of chronic liver disease.NEUROLOGIC:no obvious focal defect. Results - Labs CBC & Chem 7: 08/28/18 02:40 08/28/18 08:40 Labs: Last Result 08/27/18 08/28/18 08/28/18 22:57 00:41 02:40 Calcium 9.1 9.0 8.7 08/28/18 08/28/18 04:42 08:40 Calcium 8.4 L 8.3 L Entire Visit 08/28/18 08/28/18 08/28/18 02:40 02:40 02:40 Hgb 14.9 Hct 43.3 PT 14.7 H Total Bilirubin 0.8 AST 21 ALT 23 - ABG ABG results: PT/INR, D-dimer PT 14.7 Seconds (9.4-12.1) H 08/28/18 02:40 - Impressions Impressions Abdomen/Pelvis CT 08/27/18 15:45 IMPRESSION: Persistent inflammatory change surrounding the pancreas, increased compared to 07/28/2018. Hypodensity in the region the pancreatic tail appears similar. D/ / Jeevan Deluna MD / Jeevan Deluna MD Interpreting Provider: Jeevan Deluna MD Consult Discharge Plan - Plan Referrals: NONE,PCP [Primary Care Provider] - <Jacoby Garcia - Last Filed: 08/28/18 14:11> Date of Encounter: 08/28/18 - Time Spent With Patient Total time spent is greater than 50% in coordination of care (as documented) at patient's floor/unit and/or counseling patient: GI History of Present Illness - Data of Consult Requesting Physician: Yahir Staley MD - Consult Narrative History of present illness: Mr. Scanlon is a 32 year old male - Constitutional Vitals: Temp Pulse Resp BP Pulse Ox 98.6 F 109 20 122/78 96 08/28/18 12:06 08/28/18 12:06 08/28/18 12:06 08/28/18 12:06 08/28/18 12:06 Results - Labs CBC & Chem 7: 08/28/18 02:40 08/28/18 11:18 Labs: Last Result 08/28/18 08/28/18 08/28/18 02:40 04:42 08:40 Calcium 8.7 8.4 L 8.3 L Triglycerides 08/28/18 11:18 Calcium 8.1 L Triglycerides 2244 H Entire Visit 08/28/18 08/28/18 08/28/18 02:40 02:40 02:40 Hgb 14.9 Hct 43.3 PT 14.7 H Total Bilirubin 0.8 AST 21 ALT 23 - ABG ABG results: PT/INR, D-dimer PT 14.7 Seconds (9.4-12.1) H 08/28/18 02:40 - Impressions Impressions Abdomen/Pelvis CT 08/27/18 15:45 IMPRESSION: Persistent inflammatory change surrounding the pancreas, increased compared to 07/28/2018. Hypodensity in the region the pancreatic tail appears similar. D/ / Jeevan Deluna MD / Jeevan Deluna MD Interpreting Provider: Jeevan Deluna MD - Attending Attestation I have personally performed a face to face evaluation on this patient. I have reviewed and agree with the care plan. History and Exam by me shows: Patient seen. Complaining of abdominal pain on examination: Does has epigastric upper abdominal tenderness. Assessment: Patient with pancreatic that is due to very high triglyceride. Recommendation: IV fluid pain control treatment of high triglyceride for which he is currently getting insulin infusion. As an outpatient need aggressive treatment of his high triglyceride including fish oil along with Lipitor and Lopid
[2018-08-28] MEDS ORDERED: Warfarin perPT PO PRN ×2 (11:45→18:00)
[2018-08-28] MEDS ORDERED: *HR* Enoxaparin 40 MG/0.4 ML SYRINGE SQ SCH (12:30)
[2018-08-28] MEDS: OXYCODONE Oral CONC 10 MG/0.5 ML ORAL.SYG SL SCH ×3 (12:34→20:25)
[2018-08-28 12:52] LABS: BUN/Creatinine Ratio 7 (6-26); Blood Urea Nitrogen 5 mg/dL (6-20); Calcium 8.1 mg/dL (8.6-10.3); Carbon Dioxide 19 mEq/L (23-29); Chloride 97 mEq/L (98-107); Glucose 137 mg/dL (70-105); Osmolality,Calculated 261 (280-300); Potassium 3.8 mEq/L (3.5-5.1); Sodium 126 mEq/L (136-145); Triglycerides 2244 mg/dL (< 150); eGFR For Non-African Americans > 60 (> 60)
[2018-08-28] MEDS ORDERED: *HR* Warfarin 10 MG TABLET PO ONE (18:00)
[2018-08-28] MEDS: *HR* Enoxaparin 100 MG/ML SYRINGE SQ SCH (18:09)
[2018-08-28] MEDS: D5% in 0.9% NACL w KCl 20 MEQ/1,000 ML MLS IVC SCH (18:13)
[2018-08-28] MEDS ORDERED: Melatonin 3 MG TABLET PO SCH (21:00)
[2018-08-28] MEDS: Insulin Human Regular 100 UNIT in 0.9 % Sodium Chloride 100 ML IVC SCH (21:18)
[2018-08-28] MEDS: Ondansetron 4 MG/2 ML VIAL IVP PRN (22:36)
[2018-08-28 23:19] LABS: BUN/Creatinine Ratio 6 (6-26); Blood Urea Nitrogen 5 mg/dL (6-20); Calcium 8.2 mg/dL (8.6-10.3); Carbon Dioxide 21 mEq/L (23-29); Chloride 97 mEq/L (98-107); Glucose 116 mg/dL (70-105); Osmolality,Calculated 262 (280-300); Potassium 4.2 mEq/L (3.5-5.1); Sodium 127 mEq/L (136-145); eGFR For Non-African Americans > 60 (> 60)
[2018-08-29] MEDS: OXYCODONE Oral CONC 10 MG/0.5 ML ORAL.SYG SL SCH ×4 (00:21→13:15)
[2018-08-29] MEDS: D5% in 0.9% NACL w KCl 20 MEQ/1,000 ML MLS IVC SCH ×4 (01:05→21:18)
[2018-08-29] MEDS: OXYCODONE Oral CONC 10 MG/0.5 ML ORAL.SYG SL PRN ×6 (02:14→23:24)
[2018-08-29] MEDS: *HR* Enoxaparin 100 MG/ML SYRINGE SQ SCH (04:37)
[2018-08-29] MEDS ORDERED: 0.9 % Sodium Chloride 250 ML ONE (06:58)
--- NOTE | 2018-08-29 07:48 | Internal Med Progress Note ---
<Hugh Christian R - Last Filed: 08/29/18 12:42> Hospitalist Progress Note - Encounter Date of Encounter: 08/29/18 Time of Encounter: 11:35 - Subjective Interval History: Mr. Scanlon is a 32 yo M with PMH of necrotizing pancreatitis, HLD, HTN, and anx/dep, p/w abdominal pain. Found to have pancreatitis 2/2 to hypertriglyceridemia. Patient seen and examined at bedside. No acute overnight events. He does report continued epigastric abdominal pain, but feels the pain medication is helping him. Still having some nausea but no vomiting. Denies having much of an appetite. Denies other acute complaints. - Exam Vitals: Temp Pulse Resp BP Pulse Ox 97.7 F 92 20 122/79 95 08/29/18 06:51 08/29/18 06:51 08/29/18 06:51 08/29/18 06:51 08/29/18 06:51 Exam: GEN: No acute distress, A&O3, laying bed HEAD: Atraumatic, normocephalic EENT: Pupils symmetric, sclera white, conjunctiva pink, mucous membranes moist HEART: RRR, normal S1 and S2, no murmurs LUNGS: Clear to auscultation bilaterally, no wheezes, rhonchi, or crackles ABD: Soft, epigastric tenderness, nondistended, bowel sounds present, no guarding or rigidity EXT: No edema noted, pulses 2/4 NEURO: No focal deficits, cooperative with exam - Assessment and Plan (1) Pancreatitis Current Visit: Yes Status: Acute Assessment and Plan: Recurrent pancreatitis 2/2 hypertriglyceridemia Also with pancreatic pseudocyst and hx of necrotizing pancreatitis Continue insulin drip with goal of TG < 500 - accuchecks Q1H and check TG Q12H Continue MIVF D5 NS + KCl Potassium improving, still hyponatremic - recheck BMP later today BCx NGTD - continue meropenem at this time Continue zofran and pain control NPO at this time, will advance as able (2) Hypertriglyceridemia Current Visit: Yes Status: Chronic Assessment and Plan: Plan as above Will resume home meds once taking PO (3) Abdominal pain Current Visit: Yes Status: Acute Assessment and Plan: Improving, continue current regimen (4) Hyponatremia Current Visit: Yes Status: Acute Assessment and Plan: Euvolemic, hypotonic hyponatemia Likely stress related in setting of pancreatitis Improving, continue MIVF Goal of correction 6-8meq/L in 24 hours (5) Subtherapeutic international normalized ratio (INR) Current Visit: Yes Status: Acute Assessment and Plan: Therapeutic today at 2.8, continue to monitor and bridge with Lovenox (6) Hypertension Current Visit: Yes Status: Chronic Assessment and Plan: Lopressor 5mg IV PRN while NPO Once taking PO, will restart home meds (7) Deep vein thrombosis of splenic vein Current Visit: No Status: Chronic Assessment and Plan: History of splenic vein thrombosis, continue Coumadin with goal INR 2-3 (8) Hypokalemia Current Visit: Yes Status: Acute Assessment and Plan: Improving, continue current MIVF DVT Prophylaxis: On Lovenox transitioning back to Coumadin - Time Spent with Patient Total time spent is greater than 50% in coordination of care (as documented) at patient's floor/unit and/or counseling patient: Internal Medicine: Result - Labs CBC & Chem 7: 08/29/18 08:43 08/29/18 08:43 Labs: BMP 08/28/18 08/28/18 08/28/18 08:40 11:18 22:49 Sodium 128 L 126 L 127 L Potassium 3.7 3.8 4.2 Chloride 98 97 L 97 L Carbon Dioxide 21 L 19 L 21 L BUN 5 L 5 L 5 L Creatinine 0.84 0.67 L 0.88 Glucose 58 L 137 H 116 H Calcium 8.3 L 8.1 L 8.2 L - ABG Interpretation ABG results: PT/INR, D-dimer PT 14.7 Seconds (9.4-12.1) H 08/28/18 02:40 Consult Discharge Plan - Plan Referrals: NONE,PCP [Primary Care Provider] - <Damian Ya - Last Filed: 08/29/18 13:57> Hospitalist Progress Note - Encounter Date of Encounter: 08/29/18 - Assessment and Plan (1) Pancreatitis Current Visit: Yes Status: Acute (2) Subtherapeutic international normalized ratio (INR) Current Visit: Yes Status: Acute (3) Hypertriglyceridemia Current Visit: Yes Status: Chronic (4) Hyponatremia Current Visit: Yes Status: Acute (5) Deep vein thrombosis of splenic vein Current Visit: No Status: Chronic Internal Medicine: Result - Labs CBC & Chem 7: 08/29/18 08:43 08/29/18 08:43 - ABG Interpretation ABG results: PT/INR, D-dimer PT 31.9 Seconds (9.4-12.1) H D 08/29/18 08:43 - Attending Attestation Patient seen and examined independently, including review of objective data including labs. I agree with plan of care as documented above by the resident with the following comments: Patient still symptomatic, using pain meds ATC. INR therapeutic. Sodium up to 130. No fevers and leukocytosis resolved. TGs down to 1500. Continue MIVF D5/0.9NS@150, continue IV insulin gtt, stop lovenox, space oxycodone to q4h, and maintain NPO. <Hugh Christian R - Last Filed: 08/29/18 12:42> (1) Pancreatitis Qualifiers: Chronicity: acute Pancreatitis type: other Acute pancreatitis complication: unspecified Qualified Code(s): K85.80 - Other acute pancreatitis without necrosis or infection (3) Abdominal pain Qualifiers: Abdominal location: epigastric Qualified Code(s): R10.13 - Epigastric pain (6) Hypertension Qualifiers: Hypertension type: essential hypertension Qualified Code(s): I10 - Essential (primary) hypertension <Damian Ya G - Last Filed: 08/29/18 13:57> (1) Pancreatitis Qualifiers: Chronicity: acute Pancreatitis type: other Acute pancreatitis complication: unspecified Qualified Code(s): K85.80 - Other acute pancreatitis without necrosis or infection
[2018-08-29] MEDS: 0.9 % Sodium Chloride 250 ML ONE ×2 (08:04→17:19)
[2018-08-29 10:31] LABS: Hematocrit 37.4 % (37.5-50.1); Mean Corpuscular HGB Conc 33.7 g/dL (31.6-35.5); Mean Corpuscular Hemoglobin 30.3 pg (28.0-33.3); Mean Corpuscular Volume 89.9 fL (83.0-100.0); Mean Platelet Volume 10.1 fL (9.4-12.4); Platelet Count 151 K/mcL (140-400); Red Blood Count 4.16 M/mcL (4.19-5.50); Red Cell Distribution Width 16.9 % (11.5-14.5)
[2018-08-29 10:47] LABS: INR 2.8; Prothrombin Time 31.9 Seconds (9.4-12.1)
[2018-08-29 10:55] LABS: BUN/Creatinine Ratio 8 (6-26); Blood Urea Nitrogen 5 mg/dL (6-20); Calcium 8.1 mg/dL (8.6-10.3); Carbon Dioxide 23 mEq/L (23-29); Chloride 101 mEq/L (98-107); Glucose 107 mg/dL (70-105); Osmolality,Calculated 268 (280-300); Potassium 3.9 mEq/L (3.5-5.1); Sodium 130 mEq/L (136-145); Triglycerides 1681 mg/dL (< 150); eGFR For Non-African Americans > 60 (> 60)
[2018-08-29 10:57] LABS: Hemoglobin 12.6 g/dL (12.9-16.9)
[2018-08-29 17:06] LABS: BUN/Creatinine Ratio 6 (6-26); Blood Urea Nitrogen 4 mg/dL (6-20); Carbon Dioxide 24 mEq/L (23-29); Chloride 98 mEq/L (98-107); Glucose 88 mg/dL (70-105); Osmolality,Calculated 268 (280-300); Potassium 3.8 mEq/L (3.5-5.1); Sodium 131 mEq/L (136-145); Triglycerides 1708 mg/dL (< 150); eGFR For Non-African Americans > 60 (> 60)
[2018-08-29] MEDS: Melatonin 3 MG TABLET PO PRN (21:15)
[2018-08-29] MEDS: Ondansetron 4 MG/2 ML VIAL IVP PRN (23:25)
[2018-08-30] MEDS: Insulin Human Regular 100 UNIT in 0.9 % Sodium Chloride 100 ML IVC SCH (00:11)
[2018-08-30] MEDS ORDERED: 0.9 % Sodium Chloride 500 ML ONE (03:10)
[2018-08-30] MEDS: OXYCODONE Oral CONC 10 MG/0.5 ML ORAL.SYG SL PRN ×5 (03:15→20:00)
[2018-08-30] MEDS: D5% in 0.9% NACL w KCl 20 MEQ/1,000 ML MLS IVC SCH ×3 (03:16→17:07)
[2018-08-30] MEDS: amLODIPine 5 MG TABLET PO SCH (08:46)
[2018-08-30 09:44] LABS: Hematocrit 32.3 % (37.5-50.1); Mean Corpuscular HGB Conc 34.1 g/dL (31.6-35.5); Mean Corpuscular Hemoglobin 30.8 pg (28.0-33.3); Mean Corpuscular Volume 90.5 fL (83.0-100.0); Mean Platelet Volume 10.3 fL (9.4-12.4); Platelet Count 163 K/mcL (140-400); Red Blood Count 3.57 M/mcL (4.19-5.50); Red Cell Distribution Width 17.4 % (11.5-14.5)
[2018-08-30 10:02] LABS: INR 2.4; Prothrombin Time 26.6 Seconds (9.4-12.1)
[2018-08-30 10:11] LABS: BUN/Creatinine Ratio 4 (6-26); Blood Urea Nitrogen 2 mg/dL (6-20); Calcium 8.6 mg/dL (8.6-10.3); Carbon Dioxide 26 mEq/L (23-29); Chloride 97 mEq/L (98-107); Glucose 110 mg/dL (70-105); Osmolality,Calculated 271 (280-300); Potassium 3.6 mEq/L (3.5-5.1); Sodium 132 mEq/L (136-145); Triglycerides 1579 mg/dL (< 150); eGFR For Non-African Americans > 60 (> 60)
--- NOTE | 2018-08-30 10:27 | Internal Med Progress Note ---
<Hugh Christian R - Last Filed: 08/30/18 10:24> Hospitalist Progress Note - Encounter Date of Encounter: 08/30/18 Time of Encounter: 10:24 - Subjective Interval History: Mr. Scanlon is a 32 yo M with PMH of necrotizing pancreatitis, HLD, HTN, and anx/dep, p/w abdominal pain. Found to have pancreatitis 2/2 to hypertriglyceridemia. Patient seen and examined at bedside. No acute overnight events. He does report continued epigastric abdominal pain, and feels the pain medicine is not lasting long enough to get him through to the next dose. Still having some intermittent nausea, but reports having some appetite return last night. Denies other acute complaints. - Exam Vitals: Temp Pulse Resp BP Pulse Ox 99.0 F 106 16 153/99 95 08/30/18 07:34 08/30/18 07:34 08/30/18 07:34 08/30/18 07:34 08/30/18 07:34 Exam: GEN: No acute distress, A&O3, laying bed HEAD: Atraumatic, normocephalic EENT: Pupils symmetric, sclera white, conjunctiva pink, mucous membranes moist HEART: RRR, normal S1 and S2, no murmurs LUNGS: Clear to auscultation bilaterally, no wheezes, rhonchi, or crackles ABD: Soft, epigastric and LUQ tenderness, nondistended, bowel sounds present, no guarding or rigidity EXT: No edema noted, pulses 2/4 NEURO: No focal deficits, cooperative with exam - Assessment and Plan (1) Pancreatitis Current Visit: Yes Status: Acute Assessment and Plan: Recurrent pancreatitis 2/2 hypertriglyceridemia Also with pancreatic pseudocyst and hx of necrotizing pancreatitis Continue insulin drip with goal of TG < 500 - space accuchecks to Q2H and check TG Q12H Continue MIVF D5 NS + KCl Potassium stable, still hyponatremic - recheck BMP later today Continue zofran and pain control - will add Toradol for breakthrough pain NPO at this time, will advance as able (2) Subtherapeutic international normalized ratio (INR) Current Visit: Yes Status: Acute Assessment and Plan: Now therapeutic, continue coumadin (3) Hypertriglyceridemia Current Visit: Yes Status: Chronic Assessment and Plan: Plan as above Will resume home meds (4) Hyponatremia Current Visit: Yes Status: Acute Assessment and Plan: Euvolemic, hypotonic hyponatemia Likely stress related in setting of pancreatitis Improving, continue MIVF Goal of correction 6-8meq/L in 24 hours (5) Deep vein thrombosis of splenic vein Current Visit: No Status: Chronic Assessment and Plan: History of splenic vein thrombosis, continue Coumadin with goal INR 2-3 (6) Hypertension Current Visit: Yes Status: Chronic Assessment and Plan: Reasonably well controlled. Continue home meds (7) Hypokalemia Current Visit: Yes Status: Acute Assessment and Plan: Improving and has been stable with replacement Continue current MIVF while on insulin drip DVT Prophylaxis: On coumadin - Time Spent with Patient Total time spent is greater than 50% in coordination of care (as documented) at patient's floor/unit and/or counseling patient: Internal Medicine: Result - Labs CBC & Chem 7: 08/30/18 08:56 08/30/18 08:56 Labs: Short CBC 08/29/18 08/30/18 Range/Units 08:43 08:56 WBC 7.8 7.8 (4.3-11.1) K/mcL Hgb 12.6 L D 11.0 L D (12.9-16.9) g/dL Hct 37.4 L 32.3 L (37.5-50.1) % Plt Count 151 163 (140-400) K/mcL BMP 08/29/18 08/29/18 08/30/18 08:43 15:50 08:56 Sodium 130 L 131 L 132 L Potassium 3.9 3.8 3.6 Chloride 101 98 97 L Carbon Dioxide 23 24 26 BUN 5 L 4 L 2 L Creatinine 0.65 L 0.63 L 0.53 L Glucose 107 H 88 110 H Calcium 8.1 L 8.0 L 8.6 - ABG Interpretation ABG results: PT/INR, D-dimer PT 26.6 Seconds (9.4-12.1) H 08/30/18 08:56 Consult Discharge Plan - Plan Referrals: NONE,PCP [Primary Care Provider] - <Damian Ya - Last Filed: 08/30/18 12:05> Hospitalist Progress Note - Encounter Date of Encounter: 08/30/18 - Assessment and Plan (1) Pancreatitis Current Visit: Yes Status: Acute (2) Hypertriglyceridemia Current Visit: Yes Status: Chronic (3) Hyponatremia Current Visit: Yes Status: Acute (4) Hypertension Current Visit: Yes Status: Chronic (5) Deep vein thrombosis of splenic vein Current Visit: No Status: Chronic (6) Hypokalemia Current Visit: Yes Status: Acute Internal Medicine: Result - Labs CBC & Chem 7: 08/30/18 08:56 08/30/18 08:56 - Attending Attestation Patient seen and examined independently, including review of objective data including labs. I agree with plan of care as documented above by the resident with the following comments: Still having pain. TG still elevated between 0196-4190 yesterday and this AM. Will continue D5 and insulin gtt, and if TG do not further downtrend will consider increasing dextrose concentration in order to facilitate uptitration of insulin. <Hugh Christian - Last Filed: 08/30/18 10:24> (1) Pancreatitis Qualifiers: Chronicity: acute Pancreatitis type: other Acute pancreatitis complication: unspecified Qualified Code(s): K85.80 - Other acute pancreatitis without necrosis or infection (6) Hypertension Qualifiers: Hypertension type: essential hypertension Qualified Code(s): I10 - Essential (primary) hypertension <Damian Ya G - Last Filed: 08/30/18 12:05> (1) Pancreatitis Qualifiers: Chronicity: acute Pancreatitis type: other Acute pancreatitis complication: unspecified Qualified Code(s): K85.80 - Other acute pancreatitis without necrosis or infection (4) Hypertension Qualifiers: Hypertension type: essential hypertension Qualified Code(s): I10 - Essential (primary) hypertension
[2018-08-30] MEDS: Ketorolac 15 MG/ML VIAL IVP PRN ×2 (13:41→22:12)
[2018-08-30 16:43] LABS: BUN/Creatinine Ratio 5 (6-26); Blood Urea Nitrogen 3 mg/dL (6-20); Calcium 8.9 mg/dL (8.6-10.3); Carbon Dioxide 28 mEq/L (23-29); Chloride 97 mEq/L (98-107); Glucose 108 mg/dL (70-105); Osmolality,Calculated 273 (280-300); Potassium 3.5 mEq/L (3.5-5.1); Sodium 133 mEq/L (136-145); eGFR For Non-African Americans > 60 (> 60)
[2018-08-30] MEDS ORDERED: *HR* Warfarin 5 MG TABLET PO ONE (18:00)
[2018-08-30] MEDS: Melatonin 3 MG TABLET PO PRN (20:01)
[2018-08-31] MEDS: OXYCODONE Oral CONC 10 MG/0.5 ML ORAL.SYG SL PRN ×6 (00:07→22:35)
[2018-08-31] MEDS: D5% in 0.9% NACL w KCl 20 MEQ/1,000 ML MLS IVC SCH ×4 (00:09→16:38)
[2018-08-31] MEDS: Insulin Human Regular 100 UNIT in 0.9 % Sodium Chloride 100 ML IVC SCH (00:11)
[2018-08-31] MEDS ORDERED: 0.9 % Sodium Chloride 250 ML ONE (02:42)
[2018-08-31 06:29] LABS: Hematocrit 31.5 % (37.5-50.1); Hemoglobin 10.5 g/dL (12.9-16.9); Mean Corpuscular HGB Conc 33.3 g/dL (31.6-35.5); Mean Corpuscular Hemoglobin 30.1 pg (28.0-33.3); Mean Corpuscular Volume 90.3 fL (83.0-100.0); Mean Platelet Volume 10.2 fL (9.4-12.4); Platelet Count 181 K/mcL (140-400); Red Blood Count 3.49 M/mcL (4.19-5.50)
[2018-08-31 06:35] LABS: INR 2.7; Prothrombin Time 30.6 Seconds (9.4-12.1)
[2018-08-31 06:46] LABS: BUN/Creatinine Ratio 4 (6-26); Blood Urea Nitrogen 2 mg/dL (6-20); Calcium 9.2 mg/dL (8.6-10.3); Carbon Dioxide 29 mEq/L (23-29); Chloride 98 mEq/L (98-107); Glucose 112 mg/dL (70-105); Osmolality,Calculated 277 (280-300); Potassium 3.4 mEq/L (3.5-5.1); Sodium 135 mEq/L (136-145); Triglycerides 737 mg/dL (< 150); eGFR For Non-African Americans > 60 (> 60)
--- NOTE | 2018-08-31 08:05 | Internal Med Progress Note ---
Hospitalist Progress Note - Encounter Date of Encounter: 08/31/18 Time of Encounter: 08:05 - Subjective Interval History: Pt tolerating some clears without any N/V. Still having pain but says it is lessening, and good response to the toradol when alternated w oxycodone. His TGs are coming down, currently ~700. No SOB or edema. - Exam Vitals: Temp Pulse Resp BP Pulse Ox 98.4 F 106 17 144/91 90 08/31/18 07:29 08/31/18 07:29 08/31/18 07:29 08/31/18 07:29 08/31/18 07:29 Exam: General: NAD, good eye contact, nontoxic but uncomfortable appearing Thoracic: Normal breath sounds b/l, no wheezing or crackles Cardio: Normal S1 and S2, regular rate and rhythm Abdomen: Soft, nondistended. Mildly tender epigastrium and LUQ Extremities: Warm, well perfused. DP pulses 2+ b/l. No edema. Neuro: Awake, fully oriented. Speech fluent - Summary of Assessment and Plan Summary of Assessment and Plan: Giuliano Scanlon is a 32 M w hx HTN, hypertriglyceridemia, necrotizing pancreatitis c/b pseudocyst and splenic vein thrombosis on warfarin, who p/w abd pain, elevated lipase, and CT showing acute inflammatory changes of pancreas, with TG 3400, consistent with acute pancreatitis. Acute pancreatitis: 2/2 TG, improving - tolerating clears - MIVF D5 0.9NS +20K @150 - supportive care: zofran prn nausea, tylenol and toradol and oxycodone prn pain Hypertriglyceridemia: 3400 on presentation, improving - continue insulin gtt until TG <500 - TG q12h - fluids as above - home gemfibrozil w meals, Hypokalemia: replace and monitor Splenic vein thrombosis '18: continue therapeutic AC on warfarin, goal 2-3 HTN: home amlodipine 10 Obesity: BMI 31 PPx: ambulate FEN: clears, MIVF as above Lines: PIV Consults: GI Code: Full Dispo: patient requires inpatient eval and management at this time. Anticipate 1-2 days. Will be homegoing Internal Medicine: Result - Labs CBC & Chem 7: 08/31/18 05:21 08/31/18 05:21 Labs: Short CBC 08/30/18 08/31/18 Range/Units 08:56 05:21 WBC 7.8 8.7 (4.3-11.1) K/mcL Hgb 11.0 L D 10.5 L (12.9-16.9) g/dL Hct 32.3 L 31.5 L (37.5-50.1) % Plt Count 163 181 (140-400) K/mcL BMP 08/30/18 08/30/18 08/31/18 08:56 16:12 05:21 Sodium 132 L 133 L 135 L Potassium 3.6 3.5 3.4 L Chloride 97 L 97 L 98 Carbon Dioxide 26 28 29 BUN 2 L 3 L 2 L Creatinine 0.53 L 0.59 L 0.49 L Glucose 110 H 108 H 112 H Calcium 8.6 8.9 9.2 - ABG Interpretation ABG results: PT/INR, D-dimer PT 30.6 Seconds (9.4-12.1) H 08/31/18 05:21 Consult Discharge Plan - Plan Referrals: NONE,PCP [Primary Care Provider] -
[2018-08-31] MEDS: amLODIPine 5 MG TABLET PO SCH (09:16)
[2018-08-31] MEDS ORDERED: Ketorolac 15 MG/ML VIAL IVP PRN (10:02)
[2018-08-31] MEDS ORDERED: 0.9 % Sodium Chloride 500 ML ONE (13:56)
[2018-08-31] MEDS: 0.9 % Sodium Chloride 1,000 ML IVC SCH (17:55)
[2018-08-31] MEDS ORDERED: *HR* Warfarin 2.5 MG TABLET PO ONE (18:00)
[2018-08-31] MEDS: Melatonin 3 MG TABLET PO PRN (22:34)
[2018-09-01] MEDS: OXYCODONE Oral CONC 10 MG/0.5 ML ORAL.SYG SL PRN ×3 (03:44→12:50)
[2018-09-01] MEDS: 0.9 % Sodium Chloride 1,000 ML IVC SCH (03:45)
[2018-09-01 06:35] LABS: INR 2.9; Prothrombin Time 33.1 Seconds (9.4-12.1)
[2018-09-01 06:45] LABS: BUN/Creatinine Ratio 6 (6-26); Blood Urea Nitrogen 3 mg/dL (6-20); Calcium 9.4 mg/dL (8.6-10.3); Carbon Dioxide 26 mEq/L (23-29); Chloride 97 mEq/L (98-107); Glucose 124 mg/dL (70-105); Osmolality,Calculated 276 (280-300); Potassium 3.6 mEq/L (3.5-5.1); Sodium 134 mEq/L (136-145); Triglycerides 271 mg/dL (< 150); eGFR For Non-African Americans > 60 (> 60)
[2018-09-01 06:56] LABS: Hematocrit 31.7 % (37.5-50.1); Hemoglobin 10.9 g/dL (12.9-16.9); Mean Corpuscular HGB Conc 34.4 g/dL (31.6-35.5); Mean Corpuscular Hemoglobin 30.4 pg (28.0-33.3); Mean Corpuscular Volume 88.5 fL (83.0-100.0); Mean Platelet Volume 10.2 fL (9.4-12.4); Platelet Count 195 K/mcL (140-400); Red Blood Count 3.58 M/mcL (4.19-5.50); Red Cell Distribution Width 17.9 % (11.5-14.5)
[2018-09-01] MEDS: amLODIPine 5 MG TABLET PO SCH (08:51)
[2018-09-01] MEDS ORDERED: Fenofibrate 54 MG TABLET PO SCH (09:00)
--- NOTE | 2018-09-01 10:57 | Discharge Summary ---
- NOTES TO OUTPATIENT PROVIDER Notes to Outpatient Provider: Hypertriglyceridemia causing pancreatitis. Recommend switching gemfibrozil to max dose fenofibrate, and switching warfarin to Xarelto due to statin/fibrate interactions w warfarin and multiple documented subtherapeutic INRs Date of Encounter: 09/01/18 Time of Encounter: 10:53 Hospital course: Dear Doctors, I recently had the opportunity to care for this patient during their recent hospital stay at [facility]. 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 Pt started on pain meds, fluids, and insulin gtt. After several days, his TG level came down to <500 and insulin gtt stopped. Pt diet gradually advanced and tolerating full liquid diet at discharge. Of note, he was again subtherapeutic on warfarin requiring lovenox inpatient. On discharge, recommend pt switch Lopid to Tricor for once daily dosing to improve compliance, and warfarin to Xarelto to ensure maintains therapeutic AC. 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 Please contact me with any questions or concerns regarding their hospital stay. Sincerely, Damian Ya MD - Discharge Medications Prescriptions: New Fenofibrate 150 mg PO DAILY #30 capsule Rivaroxaban [Xarelto] 20 mg PO DAILY #30 tablet Continued Acetaminophen [Pain Reliever] 1,000 mg PO Q8H PRN PRN Reason: Pain Amlodipine Besylate 10 mg PO DAILY Ergocalciferol (VITAMIN D2) [Vitamin D2] 50,000 unit PO QWEEK HydrOXYzine Pamoate [Vistaril] 100 mg PO TID PRN PRN Reason: Anxiety Melatonin [Melatin] 9 mg PO HS PRN PRN Reason: Sleep Sertraline [Zoloft] 200 mg PO DAILY Warfarin [Coumadin] 15 mg PO MOTH Warfarin [Coumadin] 10 mg PO SUTUWEFRSA Atorvastatin [Lipitor] 40 mg PO DAILY #30 tablet HYDROcodone/Acet 5/325 mg [[place]ander 5-325 mg] 0.5 - 1 tab PO Q6H PRN 2 Days #8 tablet PRN Reason: Pain Discontinued Gemfibrozil [Lopid] 600 mg PO BIDWM Home Medications: Acetaminophen [Pain Reliever] 1,000 mg PO Q8H PRN 07/28/18 [History] Amlodipine Besylate 10 mg PO DAILY 07/28/18 [History] Ergocalciferol (VITAMIN D2) [Vitamin D2] 50,000 unit PO QWEEK 07/28/18 [History] HydrOXYzine Pamoate [Vistaril] 100 mg PO TID PRN 07/28/18 [History] Melatonin [Melatin] 9 mg PO HS PRN 07/28/18 [History] Sertraline [Zoloft] 200 mg PO DAILY 07/28/18 [History] Warfarin [Coumadin] 15 mg PO MOTH 07/28/18 [History] Warfarin [Coumadin] 10 mg PO SUTUWEFRSA 07/29/18 [History] Atorvastatin [Lipitor] 40 mg PO DAILY #30 tablet 08/01/18 [Rx] Fenofibrate 150 mg PO DAILY #30 capsule 09/01/18 [Rx] HYDROcodone/Acet 5/325 mg [[place] 5-325 mg] 0.5 - 1 tab PO Q6H PRN 2 Days #8 tablet 09/01/18 [Rx] Rivaroxaban [Xarelto] 20 mg PO DAILY #30 tablet 09/01/18 [Rx] Allergies/Adverse Reactions: Allergy/AdvReac Type Severity Reaction Status Date / Time No Known Allergies Allergy Verified 07/28/18 23:09 Date of admission: 08/28/18 15:32 Primary care physician: PCP NONE - Constitutional Vitals: Temp Pulse Resp BP Pulse Ox 97.8 F 94 16 150/99 97 09/01/18 07:53 09/01/18 07:53 09/01/18 07:53 09/01/18 07:53 09/01/18 07:53 Exam: General: NAD, good eye contact, much more comfortable appearing Thoracic: Normal breath sounds b/l, no wheezing or crackles Cardio: Normal S1 and S2, regular rate and rhythm Abdomen: Soft, nondistended. Mildly tender epigastrium and LUQ Extremities: Warm, well perfused. DP pulses 2+ b/l. No edema. Neuro: Awake, fully oriented. Speech fluent - Patient Status Disposition: Home, Self-Care Condition: Fair Functional capacity at discharge: independent ambulation Overall status at discharge: patient is progressing back to baseline - Discharge Instructions Follow Up With: NONE,PCP [Primary Care Provider] - ([facility]) Additional Instructions: Tell patient: I sent Rx for Xarelto (blood thinner) to your pharmacy. If you get Xarelto, you MUST STOP WARFARIN at the time you start Xarelto. - Diet and Activity Activity: increase activity as tolerated Diet: advance to your usual diet (advance from liquid to solids slowly over next few days as tolerated)
[2018-09-01 11:07] VITALS: BP 156/98
[2018-09-01] MEDS ORDERED: *HR* Warfarin 1 MG TABLET PO ONE (18:00)
== END 2018-09-01 13:52 | disposition home or self-care (01) | DRG 439 ==
LOC: 2ANU 14:41 → EMEROOARM 14:41 → SUATTDRO 19:57 → 2ANU 20:39
PROVIDERS: ADMIT Pediatrics; ATTEND Internal Medicine

== ENCOUNTER 2019-09-28 08:46 | Inpatient (IN) ==
[2019-09-28] MEDS ORDERED: 0.9 % Sodium Chloride 1,000 ML IVC ONE ×2 (09:06→11:36)
[2019-09-28] MEDS ORDERED: Morphine Sulfate 2 MG/ML SYRINGE IVP ONE ×2 (09:06→10:53)
[2019-09-28] MEDS ORDERED: Ondansetron 4 MG/2 ML VIAL IVP ONE (09:06)
[2019-09-28 09:34] LABS: Basophils % 0.3 %; Eosinophils % 0.2 %; Hematocrit 45.1 % (37.5-50.1); Hemoglobin 15.3 g/dL (12.9-16.9); Immature Granulocytes % 0.4 % (0-4); Lymphocytes # 1.1 K/mcL (0.6-4.6); Lymphocytes % 10.1 %; Mean Corpuscular HGB Conc 33.9 g/dL (31.6-35.5); Mean Corpuscular Hemoglobin 28.8 pg (28.0-33.3); Mean Corpuscular Volume 84.9 fL (83.0-100.0); Mean Platelet Volume 9.1 fL (9.4-12.4); Monocytes # 0.5 K/mcL (0.0-1.3); Monocytes % 4.3 %; Neutrophils # 9.5 K/mcL (1.6-8.9); Nucleated Red Blood Cells 0.2 /100 WBC (0); Platelet Count 293 K/mcL (140-400); Red Blood Count 5.31 M/mcL (4.19-5.50); Red Cell Distribution Width 12.9 % (11.5-14.5); Segmented Neutrophils % 84.7 %; White Blood Count 11.2 K/mcL (4.3-11.1)
[2019-09-28 09:54] LABS: INR 1.1; Prothrombin Time 12.2 Seconds (9.4-12.1)
[2019-09-28 10:29] LABS: Alanine Aminotransferase 29 Units/L (7-52); Albumin 4.8 g/dL (3.5-5.7); Albumin/Globulin Ratio 1.5 (1.1-2.2); Alkaline Phosphatase 105 Units/L (34-104); Aspartate Amino Transferase 35 Units/L (13-39); BUN/Creatinine Ratio 11 (6-26); Bilirubin,Direct 0.2 mg/dL (0.0-0.2); Bilirubin,Total 1.2 mg/dL (0.3-1.0); Blood Urea Nitrogen 11 mg/dL (6-20); Calcium 10.1 mg/dL (8.6-10.3); Carbon Dioxide 28 mEq/L (23-29); Chloride 93 mEq/L (98-107); Globulin 3.2 g/dL (2.4-3.5); Glucose 187 mg/dL (70-105); Lipase 220 Units/L (11-82); Osmolality,Calculated 282 (280-300); Potassium 3.4 mEq/L (3.5-5.1); Sodium 134 mEq/L (136-145); eGFR For African Americans > 60 (> 60); eGFR For Non-African Americans > 60 (> 60)
[2019-09-28] MEDS ORDERED: Isovue-370 500 ML BOTTLE IVP ONE (10:35)
[2019-09-28 11:00] LABS: Bilirubin,Urine Negative (Negative); Blood,Urine Negative (Negative); Clarity,Urine Clear (Clear); Color,Urine Yellow (Yellow); Glucose,Urine (UA) Normal (Normal); Granular Casts,Urine Many per lpf (None Seen); Hyaline Casts,Urine Many per lpf (None Seen); Ketones,Urine Trace mg/dL (Negative); Leukocyte Esterase,Urine Negative (Negative); Mucus,Urine Few per lpf (None-Few); Nitrite,Urine Negative (Negative); Protein,Urine 30 mg/dL (Neg-Trace); RBC,Urine 0-3 per hpf (0-3); Specific Gravity,Urine 1.019 (1.010-1.025); Urobilinogen,Urine Normal (Normal); WBC,Urine 0-3 per hpf (0-3)
[2019-09-28] MEDS ORDERED: *HR* HYDROmorphone (PF) 1 MG/ML SYRINGE IVP ONE (11:36)
[2019-09-28] MEDS ORDERED: Ondansetron 4 MG/2 ML VIAL IVP PRN (12:12)
[2019-09-28] MEDS ORDERED: Naloxone 0.4 MG/ML INJ IVP PRN (12:12)
[2019-09-28 13:26] LABS: Chol/HDL Ratio 4.9 (0-4.9); Cholesterol 205 mg/dL (< 200); HDL Cholesterol 42 mg/dL (40-59); Triglycerides 1129 mg/dL (< 150)
[2019-09-28] MEDS: *HR* HYDROmorphone 2 MG/ML SYRINGE IVP PRN ×7 (13:32→23:17)
[2019-09-28] MEDS ORDERED: Insulin Human Regular 100 UNIT in 0.9 % Sodium Chloride 100 ML IVC SCH (14:00)
[2019-09-28] MEDS: D5% in 0.45% NACL w KCl 20 MEQ/1,000 ML MLS IVC SCH ×2 (15:23→22:17)
[2019-09-28] MEDS: *HR* Heparin 5,000 UNIT/ML VIAL SQ SCH (15:24)
[2019-09-28] MEDS: Insulin Human Regular 100 UNIT in 0.9 % Sodium Chloride 100 ML IVC SCH (15:24)
[2019-09-28] MEDS: Pantoprazole 40 MG VIAL IVP SCH (16:52)
[2019-09-28] MEDS: *HR* Dextrose 50 % in Water (Vial) 50 ML VIAL IVP PRN ×5 (17:05→22:18)
[2019-09-28] MEDS: D10% in Water 500 ML IVC SCH (21:07)
[2019-09-28 21:10] LABS: BUN/Creatinine Ratio 9 (6-26); Blood Urea Nitrogen 6 mg/dL (6-20); Calcium 8.9 mg/dL (8.6-10.3); Carbon Dioxide 29 mEq/L (23-29); Chloride 96 mEq/L (98-107); Glucose 111 mg/dL (70-105); Osmolality,Calculated 272 (280-300); Potassium 4.1 mEq/L (3.5-5.1); Sodium 132 mEq/L (136-145); eGFR For African Americans > 60 (> 60); eGFR For Non-African Americans > 60 (> 60)
[2019-09-29] MEDS: Insulin Human Regular 100 UNIT in 0.9 % Sodium Chloride 100 ML IVC SCH (00:03)
[2019-09-29] MEDS: *HR* Dextrose 50 % in Water (Vial) 50 ML VIAL IVP PRN ×4 (00:33→03:40)
[2019-09-29 01:09] LABS: Basophils % 0.1 %; Eosinophils # 0.1 K/mcL (0.0-0.6); Eosinophils % 0.5 %; Hematocrit 43.7 % (37.5-50.1); Hemoglobin 14.5 g/dL (12.9-16.9); Immature Granulocytes % 0.4 % (0-4); Lymphocytes # 1.2 K/mcL (0.6-4.6); Lymphocytes % 11.7 %; Mean Corpuscular HGB Conc 33.2 g/dL (31.6-35.5); Mean Corpuscular Hemoglobin 28.9 pg (28.0-33.3); Mean Corpuscular Volume 87.1 fL (83.0-100.0); Mean Platelet Volume 9.2 fL (9.4-12.4); Monocytes # 0.4 K/mcL (0.0-1.3); Monocytes % 3.5 %; Neutrophils # 8.3 K/mcL (1.6-8.9); Platelet Count 228 K/mcL (140-400); Red Blood Count 5.02 M/mcL (4.19-5.50); Red Cell Distribution Width 12.9 % (11.5-14.5); Segmented Neutrophils % 83.8 %; White Blood Count 9.9 K/mcL (4.3-11.1)
[2019-09-29 01:45] LABS: BUN/Creatinine Ratio 7 (6-26); Blood Urea Nitrogen 4 mg/dL (6-20); Calcium 8.5 mg/dL (8.6-10.3); Carbon Dioxide 25 mEq/L (23-29); Chloride 98 mEq/L (98-107); Glucose 105 mg/dL (70-105); Magnesium 1.7 mg/dL (1.6-2.6); Osmolality,Calculated 273 (280-300); Phosphorous 2.8 mg/dL (2.7-4.5); Potassium 3.5 mEq/L (3.5-5.1); Sodium 133 mEq/L (136-145); eGFR For African Americans > 60 (> 60); eGFR For Non-African Americans > 60 (> 60)
[2019-09-29] MEDS: *HR* HYDROmorphone 2 MG/ML SYRINGE IVP PRN ×6 (02:14→12:15)
[2019-09-29] MEDS: D10% in Water 500 ML IVC SCH (03:46)
[2019-09-29] MEDS: D5% in 0.45% NACL w KCl 20 MEQ/1,000 ML MLS IVC SCH (05:12)
[2019-09-29] MEDS: *HR* Heparin 5,000 UNIT/ML VIAL SQ SCH ×2 (05:18→17:48)
[2019-09-29] MEDS: Pantoprazole 40 MG VIAL IVP SCH ×2 (05:18→17:48)
[2019-09-29 06:41] LABS: BUN/Creatinine Ratio 5 (6-26); Blood Urea Nitrogen 3 mg/dL (6-20); Carbon Dioxide 26 mEq/L (23-29); Chloride 98 mEq/L (98-107); Chol/HDL Ratio 3.8 (0-4.9); Cholesterol 173 mg/dL (< 200); Glucose 90 mg/dL (70-105); HDL Cholesterol 46 mg/dL (40-59); Osmolality,Calculated 272 (280-300); Potassium 3.8 mEq/L (3.5-5.1); Sodium 133 mEq/L (136-145); Triglycerides 428 mg/dL (< 150); eGFR For African Americans > 60 (> 60); eGFR For Non-African Americans > 60 (> 60)
[2019-09-29] MEDS: amLODIPine 5 MG TABLET PO SCH (08:07)
[2019-09-29] MEDS ORDERED: Dextrose Gel 15 GM/37.5 ML TUBE PO PRN ×2 (12:33)
[2019-09-29] MEDS ORDERED: D5% in Water 1,000 ML IVC PRN (12:33)
[2019-09-29] MEDS ORDERED: Ringers Solution, Lactated 1,000 ML IVC SCH (13:00)
[2019-09-29] MEDS: *HR* HYDROmorphone (PF) 1 MG/ML SYRINGE IVP PRN ×4 (13:39→20:06)
[2019-09-29 13:45] LABS: Estimated Average Glucose 169 mg/dl; Hemoglobin A1C 7.5 %
[2019-09-29] MEDS: Insulin LISPRO 300 UNITS/3 ML VIAL SQ SCH ×2 (17:48→23:31)
[2019-09-29] MEDS: traZODone 50 MG TABLET PO SCH (20:05)
[2019-09-29] MEDS: Ringers Solution, Lactated 1,000 ML IVC SCH (20:06)
[2019-09-29] MEDS: DHA PO SCH (23:25)
[2019-09-29] MEDS: EPA PO SCH (23:25)
[2019-09-29] MEDS: FISH OIL PO SCH (23:25)
[2019-09-29] MEDS: OMEGA PO SCH (23:25)
[2019-09-30] MEDS: Ringers Solution, Lactated 1,000 ML IVC SCH ×4 (00:04→20:46)
[2019-09-30] MEDS: Insulin LISPRO 300 UNITS/3 ML VIAL SQ SCH ×5 (00:06→20:35)
[2019-09-30 03:42] LABS: Hematocrit 39.2 % (37.5-50.1); Hemoglobin 13.2 g/dL (12.9-16.9); Mean Corpuscular HGB Conc 33.7 g/dL (31.6-35.5); Mean Corpuscular Hemoglobin 29.9 pg (28.0-33.3); Mean Corpuscular Volume 88.7 fL (83.0-100.0); Mean Platelet Volume 10.1 fL (9.4-12.4); Platelet Count 182 K/mcL (140-400); Red Blood Count 4.42 M/mcL (4.19-5.50); White Blood Count 5.9 K/mcL (4.3-11.1)
[2019-09-30 04:02] LABS: BUN/Creatinine Ratio 5 (6-26); Blood Urea Nitrogen 3 mg/dL (6-20); Calcium 8.5 mg/dL (8.6-10.3); Carbon Dioxide 27 mEq/L (23-29); Chloride 101 mEq/L (98-107); Glucose 146 mg/dL (70-105); Osmolality,Calculated 283 (280-300); Potassium 3.7 mEq/L (3.5-5.1); Sodium 137 mEq/L (136-145); eGFR For African Americans > 60 (> 60); eGFR For Non-African Americans > 60 (> 60)
[2019-09-30] MEDS: *HR* Heparin 5,000 UNIT/ML VIAL SQ SCH ×2 (05:52→16:47)
[2019-09-30] MEDS: *HR* HYDROmorphone (PF) 1 MG/ML SYRINGE IVP PRN ×5 (05:53→23:39)
[2019-09-30] MEDS: Pantoprazole 40 MG VIAL IVP SCH ×2 (05:53→16:47)
[2019-09-30] MEDS: amLODIPine 5 MG TABLET PO SCH (08:14)
[2019-09-30] MEDS: FISH OIL PO SCH (09:41)
[2019-09-30] MEDS: DHA PO SCH (09:41)
[2019-09-30] MEDS: OMEGA PO SCH (09:41)
[2019-09-30] MEDS: EPA PO SCH (09:41)
[2019-09-30] MEDS ORDERED: Ringers Solution, Lactated 1,000 ML ONE (13:12)
[2019-09-30] MEDS ORDERED: Ringers Solution, Lactated 1,000 ML IVC SCH (13:15)
[2019-09-30 15:06] LABS: Magnesium 1.4 mg/dL (1.6-2.6)
[2019-09-30 18:22] LABS: Hematocrit 37.3 % (37.5-50.1); Hemoglobin 11.9 g/dL (12.9-16.9); Mean Corpuscular HGB Conc 31.9 g/dL (31.6-35.5); Mean Corpuscular Hemoglobin 28.4 pg (28.0-33.3); Mean Platelet Volume 9.9 fL (9.4-12.4); Platelet Count 216 K/mcL (140-400); Red Blood Count 4.19 M/mcL (4.19-5.50); White Blood Count 5.9 K/mcL (4.3-11.1)
[2019-09-30] MEDS: traZODone 50 MG TABLET PO SCH (20:38)
[2019-10-01] MEDS: Insulin LISPRO 300 UNITS/3 ML VIAL SQ SCH ×5 (01:51→21:42)
[2019-10-01] MEDS: *HR* HYDROmorphone (PF) 1 MG/ML SYRINGE IVP PRN ×2 (04:29→08:38)
[2019-10-01] MEDS: *HR* Heparin 5,000 UNIT/ML VIAL SQ SCH ×2 (05:59→17:23)
[2019-10-01] MEDS: Pantoprazole 40 MG VIAL IVP SCH ×2 (05:59→17:23)
[2019-10-01 08:06] LABS: Hematocrit 37.4 % (37.5-50.1); Hemoglobin 12.3 g/dL (12.9-16.9); Mean Corpuscular HGB Conc 32.9 g/dL (31.6-35.5); Mean Corpuscular Hemoglobin 29.4 pg (28.0-33.3); Mean Corpuscular Volume 89.5 fL (83.0-100.0); Mean Platelet Volume 9.9 fL (9.4-12.4); Platelet Count 227 K/mcL (140-400); Red Blood Count 4.18 M/mcL (4.19-5.50); Red Cell Distribution Width 12.7 % (11.5-14.5); White Blood Count 4.9 K/mcL (4.3-11.1)
[2019-10-01 08:15] LABS: BUN/Creatinine Ratio 9 (6-26); Blood Urea Nitrogen 6 mg/dL (6-20); Calcium 9.9 mg/dL (8.6-10.3); Carbon Dioxide 32 mEq/L (23-29); Chloride 97 mEq/L (98-107); Glucose 140 mg/dL (70-105); Magnesium 1.7 mg/dL (1.6-2.6); Osmolality,Calculated 284 (280-300); Potassium 3.8 mEq/L (3.5-5.1); Sodium 137 mEq/L (136-145); eGFR For African Americans > 60 (> 60); eGFR For Non-African Americans > 60 (> 60)
[2019-10-01] MEDS: amLODIPine 5 MG TABLET PO SCH (08:19)
[2019-10-01] MEDS: gemfibroziL 600 MG TABLET PO SCH ×2 (08:20→17:24)
[2019-10-01] MEDS: Ringers Solution, Lactated 1,000 ML IVC SCH ×2 (08:42)
[2019-10-01 09:05] LABS: C-Reactive Protein 126 mg/L (Less than 10)
[2019-10-01] MEDS: traZODone 50 MG TABLET PO SCH (21:42)
[2019-10-02] MEDS: *HR* Heparin 5,000 UNIT/ML VIAL SQ SCH (05:31)
[2019-10-02] MEDS: Pantoprazole 40 MG VIAL IVP SCH (05:31)
[2019-10-02 07:08] VITALS: BP 134/90
[2019-10-02] MEDS: amLODIPine 5 MG TABLET PO SCH (08:26)
[2019-10-02] MEDS: gemfibroziL 600 MG TABLET PO SCH (08:27)
[2019-10-02] MEDS: Insulin LISPRO 300 UNITS/3 ML VIAL SQ SCH (08:30)
== END 2019-10-02 10:42 | disposition home or self-care (01) | DRG 439 ==
LOC: EMEROOARM 08:46 → 2NNU 08:46 → SUATTDRO 12:15 → 2NNU 14:55 → 3ANU 09-29 17:09
PROVIDERS: ADMIT Internal Medicine; ATTEND Student in an Organized Health Care Education/Training Program

== ENCOUNTER 2020-07-25 08:02 | Observation (INO) ==
[2020-07-25 08:52] LABS: Bilirubin,Urine Negative (Negative); Blood,Urine Negative (Negative); Clarity,Urine Clear (Clear); Color,Urine Yellow (Yellow); Glucose,Urine (UA) Normal (Normal); Ketones,Urine 150 mg/dL (Negative); Leukocyte Esterase,Urine Negative (Negative); Nitrite,Urine Negative (Negative); Protein,Urine Trace mg/dL (Neg-Trace); Specific Gravity,Urine 1.025 (1.010-1.025); Urobilinogen,Urine Normal (Normal)
[2020-07-25 10:48] LABS: Basophils % 0.4 %; Eosinophils # 0.1 K/mcL (0.0-0.6); Eosinophils % 0.6 %; Hematocrit 52.2 % (37.5-50.1); Immature Granulocytes % 0.6 % (0-4); Lymphocytes # 0.8 K/mcL (0.6-4.6); Lymphocytes % 7.8 %; Mean Corpuscular HGB Conc 32.6 g/dL (31.6-35.5); Mean Corpuscular Hemoglobin 31.3 pg (28.0-33.3); Mean Platelet Volume 10.1 fL (9.4-12.4); Monocytes # 0.6 K/mcL (0.0-1.3); Monocytes % 5.5 %; Neutrophils # 9.2 K/mcL (1.6-8.9); Platelet Count 206 K/mcL (140-400); Red Blood Count 5.44 M/mcL (4.19-5.50); Red Cell Distribution Width 16.8 % (11.5-14.5); Segmented Neutrophils % 85.1 %; White Blood Count 10.8 K/mcL (4.3-11.1)
[2020-07-25] MEDS ORDERED: Ondansetron 4 MG/2 ML VIAL IVP ONE (10:59)
[2020-07-25] MEDS ORDERED: 0.9 % Sodium Chloride 1,000 ML IVC ONE (10:59)
[2020-07-25] MEDS ORDERED: *HR* HYDROmorphone (PF) 1 MG/ML SYRINGE IVP ONE ×2 (10:59→12:30)
[2020-07-25] MEDS ORDERED: Isovue-370 500 ML BOTTLE IVP ONE (11:01)
[2020-07-25 11:04] LABS: Alanine Aminotransferase 61 Units/L (7-52); Albumin 4.5 g/dL (3.5-5.7); Albumin/Globulin Ratio 1.4 (1.1-2.2); Alkaline Phosphatase 77 Units/L (34-104); Amylase 36 Units/L (29-103); Aspartate Amino Transferase 38 Units/L (13-39); BUN/Creatinine Ratio 7 (6-26); Bilirubin,Direct 0.2 mg/dL (0.0-0.2); Bilirubin,Indirect 0.6 mg/dL (0.0-1.0); Bilirubin,Total 0.8 mg/dL (0.3-1.0); Blood Urea Nitrogen 6 mg/dL (6-20); Calcium 9.5 mg/dL (8.6-10.3); Carbon Dioxide 26 mEq/L (23-29); Chloride 96 mEq/L (98-107); Globulin 3.3 g/dL (2.4-3.5); Glucose 194 mg/dL (70-105); Lipase 126 Units/L (11-82); Osmolality,Calculated 277 (280-300); Potassium 4.3 mEq/L (3.5-5.1); Sodium 132 mEq/L (136-145); Total Protein 7.8 g/dL (6.4-8.9); eGFR For African Americans > 60 (> 60); eGFR For Non-African Americans > 60 (> 60)
[2020-07-25 11:27] LABS: Basophils % 0.2 %; Eosinophils # 0.1 K/mcL (0.0-0.6); Eosinophils % 0.7 %; Hematocrit 47.7 % (37.5-50.1); Immature Granulocytes % 0.4 % (0-4); Lymphocytes # 0.7 K/mcL (0.6-4.6); Lymphocytes % 7.5 %; Mean Corpuscular HGB Conc 33.5 g/dL (31.6-35.5); Mean Corpuscular Hemoglobin 31.6 pg (28.0-33.3); Mean Corpuscular Volume 94.3 fL (83.0-100.0); Mean Platelet Volume 10.1 fL (9.4-12.4); Monocytes # 0.6 K/mcL (0.0-1.3); Monocytes % 6.2 %; Neutrophils # 8.4 K/mcL (1.6-8.9); Platelet Count 197 K/mcL (140-400); Red Blood Count 5.06 M/mcL (4.19-5.50); Red Cell Distribution Width 16.7 % (11.5-14.5); White Blood Count 9.9 K/mcL (4.3-11.1)
[2020-07-25 11:49] LABS: Troponin I 0.04 ng/mL (< 0.04)
[2020-07-25] MEDS: Aspirin 81 MG TAB.CHEW PO SCH (13:24)
[2020-07-25] MEDS ORDERED: Naloxone 0.4 MG/ML INJ IVP PRN (15:03)
[2020-07-25] MEDS ORDERED: Ondansetron 4 MG/2 ML VIAL IVP PRN (15:03)
[2020-07-25] MEDS ORDERED: D5% in Water 1,000 ML IVC PRN (15:32)
[2020-07-25] MEDS ORDERED: *HR* Dextrose 50 % in Water (Vial) 50 ML VIAL IVP PRN (15:32)
[2020-07-25] MEDS ORDERED: Dextrose Gel 15 GM/37.5 ML TUBE PO PRN ×2 (15:32)
[2020-07-25 16:16] LABS: Chol/HDL Ratio 2.4 (0-4.9)
[2020-07-25] MEDS: 0.9 % Sodium Chloride 1,000 ML IVC SCH (16:36)
[2020-07-25] MEDS: Insulin LISPRO 300 UNITS/3 ML VIAL SUBQ SCH ×2 (16:51→21:08)
[2020-07-25] MEDS: *HR* Heparin 5,000 UNIT/ML VIAL SQ SCH (18:00)
[2020-07-25] MEDS: *HR* Promethazine 25 MG/ML VIAL IM PRN (18:52)
[2020-07-26] MEDS: 0.9 % Sodium Chloride 1,000 ML IVC SCH (00:24)
[2020-07-26] MEDS: *HR* Promethazine 25 MG/ML VIAL IM PRN ×3 (00:53→16:03)
[2020-07-26 01:01] LABS: Basophils % 0.5 %; Eosinophils # 0.1 K/mcL (0.0-0.6); Eosinophils % 1.3 %; Hematocrit 47.5 % (37.5-50.1); Hemoglobin 15.5 g/dL (12.9-16.9); Immature Granulocytes % 0.7 % (0-4); Lymphocytes # 1.6 K/mcL (0.6-4.6); Lymphocytes % 19.7 %; Mean Corpuscular HGB Conc 32.6 g/dL (31.6-35.5); Mean Corpuscular Hemoglobin 30.9 pg (28.0-33.3); Mean Corpuscular Volume 94.6 fL (83.0-100.0); Mean Platelet Volume 9.9 fL (9.4-12.4); Monocytes # 0.6 K/mcL (0.0-1.3); Monocytes % 7.5 %; Neutrophils # 5.8 K/mcL (1.6-8.9); Platelet Count 196 K/mcL (140-400); Red Blood Count 5.02 M/mcL (4.19-5.50); Red Cell Distribution Width 16.6 % (11.5-14.5); Segmented Neutrophils % 70.3 %; White Blood Count 8.2 K/mcL (4.3-11.1)
[2020-07-26 01:18] LABS: Alanine Aminotransferase 44 Units/L (7-52); Albumin 3.9 g/dL (3.5-5.7); Albumin/Globulin Ratio 1.2 (1.1-2.2); Alkaline Phosphatase 68 Units/L (34-104); Aspartate Amino Transferase 25 Units/L (13-39); BUN/Creatinine Ratio 6 (6-26); Bilirubin,Total 0.5 mg/dL (0.3-1.0); Blood Urea Nitrogen 4 mg/dL (6-20); Calcium 8.9 mg/dL (8.6-10.3); Carbon Dioxide 24 mEq/L (23-29); Chloride 101 mEq/L (98-107); Globulin 3.2 g/dL (2.4-3.5); Glucose 135 mg/dL (70-105); Osmolality,Calculated 277 (280-300); Potassium 3.8 mEq/L (3.5-5.1); Sodium 134 mEq/L (136-145); Total Protein 7.1 g/dL (6.4-8.9); eGFR For African Americans > 60 (> 60); eGFR For Non-African Americans > 60 (> 60)
[2020-07-26] MEDS: *HR* Heparin 5,000 UNIT/ML VIAL SQ SCH ×2 (04:15→17:31)
[2020-07-26] MEDS: Insulin LISPRO 300 UNITS/3 ML VIAL SUBQ SCH ×4 (07:46→20:22)
[2020-07-26] MEDS: Aspirin 81 MG TAB.CHEW PO SCH (08:12)
[2020-07-26] MEDS: amLODIPine 5 MG TABLET PO SCH (08:12)
[2020-07-26 09:21] LABS: Lipase 84 Units/L (11-82)
[2020-07-26] MEDS ORDERED: *HR* HYDROmorphone (PF) 1 MG/ML SYRINGE IVP ONE (10:01)
[2020-07-26] MEDS ORDERED: Ringers Solution, Lactated 1,000 ML IVC ONE (15:15)
[2020-07-26] MEDS: *HR* HYDROmorphone (PF) 1 MG/ML SYRINGE IVP PRN (17:31)
[2020-07-26] MEDS: Ringers Solution, Lactated 500 ML IVC SCH ×5 (18:28→23:27)
[2020-07-26] MEDS: *HR* Buprenorphine HCl 8 MG TAB.SUBL SL SCH (20:22)
[2020-07-26] MEDS ORDERED: traZODone 50 MG TABLET PO SCH (21:00)
[2020-07-27] MEDS: Ringers Solution, Lactated 500 ML IVC SCH ×6 (01:28→12:05)
[2020-07-27 02:16] LABS: Hematocrit 52.5 % (37.5-50.1); Mean Corpuscular HGB Conc 32.8 g/dL (31.6-35.5); Mean Corpuscular Hemoglobin 30.9 pg (28.0-33.3); Mean Corpuscular Volume 94.3 fL (83.0-100.0); Platelet Count 245 K/mcL (140-400); Red Blood Count 5.57 M/mcL (4.19-5.50); Red Cell Distribution Width 16.2 % (11.5-14.5); White Blood Count 7.2 K/mcL (4.3-11.1)
[2020-07-27 02:17] LABS: Hemoglobin 17.2 g/dL (12.9-16.9)
[2020-07-27 02:40] LABS: Alanine Aminotransferase 38 Units/L (7-52); Albumin/Globulin Ratio 1.2 (1.1-2.2); Alkaline Phosphatase 64 Units/L (34-104); Aspartate Amino Transferase 47 Units/L (13-39); BUN/Creatinine Ratio 9 (6-26); Bilirubin,Total 0.5 mg/dL (0.3-1.0); Blood Urea Nitrogen 6 mg/dL (6-20); Calcium 9.2 mg/dL (8.6-10.3); Carbon Dioxide 23 mEq/L (23-29); Chloride 101 mEq/L (98-107); Globulin 3.4 g/dL (2.4-3.5); Glucose 99 mg/dL (70-105); Osmolality,Calculated 280 (280-300); Potassium 4.2 mEq/L (3.5-5.1); Sodium 136 mEq/L (136-145); Total Protein 7.4 g/dL (6.4-8.9); eGFR For African Americans > 60 (> 60); eGFR For Non-African Americans > 60 (> 60)
[2020-07-27] MEDS: *HR* Heparin 5,000 UNIT/ML VIAL SQ SCH (05:06)
[2020-07-27] MEDS: Insulin LISPRO 300 UNITS/3 ML VIAL SUBQ SCH ×2 (07:33→13:00)
[2020-07-27] MEDS: Aspirin 81 MG TAB.CHEW PO SCH (08:11)
[2020-07-27] MEDS: amLODIPine 5 MG TABLET PO SCH (08:12)
[2020-07-27] MEDS: *HR* HYDROmorphone (PF) 1 MG/ML SYRINGE IVP PRN (08:19)
[2020-07-27] MEDS: *HR* Buprenorphine HCl 8 MG TAB.SUBL SL SCH (08:21)
[2020-07-27] MEDS ORDERED: Thiamine (B-1) 100 MG TABLET PO SCH (09:00)
[2020-07-27 09:04] LABS: Lipase 59 Units/L (11-82)
[2020-07-27 12:20] VITALS: BP 158/88
== END 2020-07-27 13:42 | disposition home or self-care (01) ==
LOC: SUATTDRO → EMEROOARM 08:02 → 3BNU 08:02 → SUATTDRO 15:00 → 3BNU 16:20
PROVIDERS: ADMIT Family Medicine; ATTEND Registered Nurse

== ENCOUNTER 2020-10-16 16:09 | Observation (INO) ==
[2020-10-16] MEDS ORDERED: Ondansetron 4 MG/2 ML VIAL IVP PRN (18:25)
[2020-10-16] MEDS ORDERED: Naloxone 0.4 MG/ML INJ IVP PRN (18:25)
[2020-10-16] MEDS ORDERED: Acetaminophen 325 MG TABLET PO PRN (18:25)
[2020-10-16] MEDS ORDERED: *HR* LORazepam 2 MG/ML VIAL IVP PRN (18:30)
[2020-10-16 19:49] LABS: INR 1.1; Prothrombin Time 12.4 Seconds (9.4-12.1)
[2020-10-16] MEDS: *HR* LORazepam 2 MG/ML VIAL IVP PRN (20:47)
[2020-10-16] MEDS: *HR* LORazepam 0.5 MG TABLET PO SCH (20:47)
[2020-10-16] MEDS ORDERED: *HR* LORazepam 2 MG/ML VIAL IVP ONE (20:53)
[2020-10-16 20:56] LABS: BUN/Creatinine Ratio 18 (6-26); Blood Urea Nitrogen 13 mg/dL (6-20); Carbon Dioxide 14 mEq/L (23-29); Chloride 98 mEq/L (98-107); Glucose 132 mg/dL (70-105); Osmolality,Calculated 278 (280-300); Potassium 4.4 mEq/L (3.5-5.1); Sodium 133 mEq/L (136-145); eGFR For African Americans > 60 (> 60); eGFR For Non-African Americans > 60 (> 60)
[2020-10-16] MEDS ORDERED: Dextrose Gel 15 GM/37.5 ML TUBE PO PRN ×2 (21:08)
[2020-10-16] MEDS ORDERED: *HR* Dextrose 50 % in Water (Vial) 50 ML VIAL IVP PRN (21:08)
[2020-10-16] MEDS ORDERED: D5% in Water 1,000 ML IVC PRN (21:08)
[2020-10-16 21:43] LABS: Basophils # 0.1 K/mcL (0.0-0.2); Basophils % 0.5 %; Eosinophils % 0.4 %; Hematocrit 40.8 % (37.5-50.1); Hemoglobin 14.5 g/dL (12.9-16.9); Immature Granulocytes % 0.4 % (0-4); Lymphocytes # 2.4 K/mcL (0.6-4.6); Lymphocytes % 23.1 %; Mean Corpuscular HGB Conc 35.5 g/dL (31.6-35.5); Mean Corpuscular Hemoglobin 30.9 pg (28.0-33.3); Mean Platelet Volume 9.6 fL (9.4-12.4); Monocytes # 0.7 K/mcL (0.0-1.3); Monocytes % 6.4 %; Neutrophils # 7.1 K/mcL (1.6-8.9); Platelet Count 209 K/mcL (140-400); Red Blood Count 4.69 M/mcL (4.19-5.50); Red Cell Distribution Width 12.2 % (11.5-14.5); Segmented Neutrophils % 69.2 %; White Blood Count 10.2 K/mcL (4.3-11.1)
[2020-10-16 22:03] LABS: Albumin 4.3 g/dL (3.5-5.7); Albumin/Globulin Ratio 1.6 (1.1-2.2); Bilirubin,Direct 0.2 mg/dL (0.0-0.2); Bilirubin,Indirect 1.1 mg/dL (0.0-1.0); Bilirubin,Total 1.3 mg/dL (0.3-1.0); Globulin 2.7 g/dL (2.4-3.5)
[2020-10-16 22:24] LABS: Hepatitis B Surface Antigen Nonreactive (Nonreactive)
[2020-10-16 22:53] LABS: Hepatitis C Virus Antibody Nonreactive (Nonreactive)
[2020-10-16 22:54] LABS: Hepatitis B Core IgM Nonreactive (Nonreactive)
[2020-10-16 22:55] LABS: Hepatitis A Antibody IgM Nonreactive (Nonreactive)
[2020-10-17] MEDS: Famotidine 20 MG/2 ML VIAL IVP SCH ×2 (00:05→08:01)
[2020-10-17] MEDS: traZODone 50 MG TABLET PO SCH ×2 (00:05→21:32)
[2020-10-17] MEDS: Insulin LISPRO 300 UNITS/3 ML VIAL SUBQ SCH ×5 (00:05→21:15)
[2020-10-17] MEDS: 0.9 % Sodium Chloride 1,000 ML IVC SCH ×2 (03:54→17:17)
[2020-10-17 04:01] LABS: Basophils # 0.1 K/mcL (0.0-0.2); Basophils % 0.6 %; Eosinophils % 0.5 %; Hematocrit 41.5 % (37.5-50.1); Hemoglobin 14.7 g/dL (12.9-16.9); Immature Granulocytes % 0.5 % (0-4); Lymphocytes # 2.2 K/mcL (0.6-4.6); Lymphocytes % 27.5 %; Mean Corpuscular HGB Conc 35.4 g/dL (31.6-35.5); Mean Corpuscular Hemoglobin 31.3 pg (28.0-33.3); Mean Corpuscular Volume 88.3 fL (83.0-100.0); Mean Platelet Volume 9.8 fL (9.4-12.4); Monocytes # 0.5 K/mcL (0.0-1.3); Monocytes % 6.5 %; Neutrophils # 5.1 K/mcL (1.6-8.9); Platelet Count 206 K/mcL (140-400); Red Cell Distribution Width 12.3 % (11.5-14.5); Segmented Neutrophils % 64.4 %; White Blood Count 7.9 K/mcL (4.3-11.1)
[2020-10-17 04:07] LABS: Estimated Average Glucose 169 mg/dl; Hemoglobin A1C 7.5 %
[2020-10-17 04:24] LABS: Iron 288 mcg/dL (65-175)
[2020-10-17 04:25] LABS: BUN/Creatinine Ratio 25 (6-26); Blood Urea Nitrogen 16 mg/dL (6-20); Calcium 9.1 mg/dL (8.6-10.3); Carbon Dioxide 27 mEq/L (23-29); Chloride 98 mEq/L (98-107); Chol/HDL Ratio 3.7 (0-4.9); Cholesterol 216 mg/dL (< 200); Glucose 149 mg/dL (70-105); HDL Cholesterol 59 mg/dL (40-59); LDL Cholesterol,Calculated 94 mg/dL (< 100); Osmolality,Calculated 286 (280-300); Phosphorous 2.8 mg/dL (2.7-4.5); Potassium 4.1 mEq/L (3.5-5.1); Sodium 136 mEq/L (136-145); Triglycerides 315 mg/dL (< 150); Troponin I < 0.03 ng/mL (< 0.04); eGFR For African Americans > 60 (> 60); eGFR For Non-African Americans > 60 (> 60)
[2020-10-17 04:40] LABS: Ferritin 771 ng/mL (20-250)
[2020-10-17 04:43] LABS: % Iron Saturation 85 % (20-55); Transferrin 243 mg/dL (203-362)
[2020-10-17 04:47] LABS: Folate 11.8 ng/mL (3.0-16.0)
[2020-10-17 05:07] LABS: Amphetamine Screen,Urine Negative ng/mL (Cutoff=1000); Barbiturate Screen,Urine Negative ng/mL (Cutoff=200); Benzodiazepines Screen,Urine Negative ng/mL (Cutoff=200); Cannabinoid Screen,Urine Positive ng/mL (Cutoff = 50); Cocaine Screen,Urine Negative ng/mL (Cutoff= 300); Opiate Screen,Urine Negative ng/mL (Cutoff=300); Phencyclidine Screen,Urine Negative ng/mL (Cutoff=25)
[2020-10-17] MEDS: Cholecalciferol (D-3) 1,000 UNIT (25MCG) TABLET PO SCH (07:59)
[2020-10-17] MEDS: amLODIPine 5 MG TABLET PO SCH (08:00)
[2020-10-17] MEDS: gemfibroziL 600 MG TABLET PO SCH ×2 (08:00→21:32)
[2020-10-17] MEDS: *HR* LORazepam 0.5 MG TABLET PO SCH ×2 (08:00→15:11)
[2020-10-17] MEDS: *HR* LORazepam 2 MG/ML VIAL IVP PRN ×4 (09:02→17:16)
[2020-10-17] MEDS ORDERED: Prochlorperazine 10 MG/2 ML VIAL IVP SCH (12:15)
[2020-10-17] MEDS ORDERED: *HR* Buprenorphine HCl 8 MG TAB.SUBL SL SCH (12:30)
[2020-10-17] MEDS ORDERED: NON-FORMULARY MEDICATION 1 EACH EACH (Omega-3s/Dha/Epa/Fish Oil [Fish Oil 1,000 Mg Softgel PO SCH (12:30)
[2020-10-17] MEDS: Thiamine (B-1) 100 MG, Folic Acid 1 MG, MVI, adult with vitamin K 10 ML in 0.9 % Sodi... IVPB SCH (17:17)
[2020-10-17] MEDS: *HR* Buprenorphine HCl 8 MG TAB.SUBL SL SCH (21:33)
[2020-10-18] MEDS: *HR* Enoxaparin 40 MG/0.4 ML SYRINGE SQ SCH (05:24)
[2020-10-18] MEDS: *HR* LORazepam 2 MG/ML VIAL IVP PRN ×2 (06:02→13:45)
[2020-10-18] MEDS: Cholecalciferol (D-3) 1,000 UNIT (25MCG) TABLET PO SCH (09:12)
[2020-10-18] MEDS: amLODIPine 5 MG TABLET PO SCH (09:12)
[2020-10-18] MEDS: gemfibroziL 600 MG TABLET PO SCH ×2 (09:12→20:37)
[2020-10-18] MEDS: Insulin LISPRO 300 UNITS/3 ML VIAL SUBQ SCH ×4 (09:13→21:47)
[2020-10-18] MEDS: *HR* Buprenorphine HCl 8 MG TAB.SUBL SL SCH ×4 (09:13→20:37)
[2020-10-18] MEDS ORDERED: Isovue-370 500 ML BOTTLE IVP ONE ×2 (11:21→11:30)
[2020-10-18] MEDS ORDERED: IVABRADINE HCL 7.5 MG TABLET PO ONE (11:23)
[2020-10-18] MEDS ORDERED: *HR* Metoprolol 5 MG/5 ML VIAL IVP PRN (11:30)
[2020-10-18] MEDS ORDERED: Nitroglycerin 0.4 MG TAB.SUBL SL PRN (11:30)
[2020-10-18] MEDS: Thiamine (B-1) 100 MG, Folic Acid 1 MG, MVI, adult with vitamin K 10 ML in 0.9 % Sodi... IVPB SCH (17:56)
[2020-10-18] MEDS: traZODone 50 MG TABLET PO SCH (20:37)
[2020-10-18] MEDS ORDERED: Metoprolol XL (24 HR) Succ 50 MG TAB.ER.24H PO ONE (23:00)
[2020-10-19] MEDS: *HR* Enoxaparin 40 MG/0.4 ML SYRINGE SQ SCH (06:16)
[2020-10-19] MEDS ORDERED: *HR* Metoprolol 5 MG/5 ML VIAL IVP PRN (07:00)
[2020-10-19] MEDS: Insulin LISPRO 300 UNITS/3 ML VIAL SUBQ SCH ×4 (09:49→22:54)
[2020-10-19] MEDS: amLODIPine 5 MG TABLET PO SCH (09:50)
[2020-10-19] MEDS: gemfibroziL 600 MG TABLET PO SCH ×2 (09:51→19:47)
[2020-10-19] MEDS: Cholecalciferol (D-3) 1,000 UNIT (25MCG) TABLET PO SCH (09:51)
[2020-10-19] MEDS: *HR* Buprenorphine HCl 8 MG TAB.SUBL SL SCH ×4 (09:52→19:48)
[2020-10-19] MEDS ORDERED: Isovue-370 500 ML BOTTLE IVP ONE (11:17)
[2020-10-19] MEDS: ALPRAZolam 0.5 MG TABLET PO PRN ×2 (12:07→19:12)
[2020-10-19] MEDS: Thiamine (B-1) 100 MG, Folic Acid 1 MG, MVI, adult with vitamin K 10 ML in 0.9 % Sodi... IVPB SCH (19:13)
[2020-10-19] MEDS: traZODone 50 MG TABLET PO SCH (19:47)
[2020-10-19 23:52] VITALS: O2SAT 97
[2020-10-20 05:20] VITALS: TEMP 98.1
[2020-10-20] MEDS: *HR* Enoxaparin 40 MG/0.4 ML SYRINGE SQ SCH (05:22)
[2020-10-20 07:19] VITALS: BP 113/70; PULSE 85
[2020-10-20] MEDS: Insulin LISPRO 300 UNITS/3 ML VIAL SUBQ SCH (08:42)
[2020-10-20] MEDS: amLODIPine 5 MG TABLET PO SCH (08:44)
[2020-10-20] MEDS: Cholecalciferol (D-3) 1,000 UNIT (25MCG) TABLET PO SCH (08:44)
[2020-10-20] MEDS: gemfibroziL 600 MG TABLET PO SCH (08:45)
[2020-10-20] MEDS ORDERED: Insulin DETEMIR 100 UNIT/ML X5UNITS SUBQ SCH (09:00)
[2020-10-20] MEDS: *HR* Buprenorphine HCl 8 MG TAB.SUBL SL SCH ×2 (09:02→13:29)
[2020-10-20] MEDS: ALPRAZolam 0.5 MG TABLET PO PRN (09:03)
[2020-10-20 09:55] LABS: Adenovirus Not Detected (Not Detect); Bordetella Pertussis Not Detected (Not Detect); Chlamydophila pneumoniae Not Detected (Not Detect); Coronavirus 229E Not Detected (Not Detect); Coronavirus HKU1 Not Detected (Not Detect); Coronavirus NL63 Not Detected (Not Detect); Coronavirus OC43 Not Detected (Not Detect); Human Metapneumovirus Not Detected (Not Detect); Human Rhinovirus/Enterovirus Not Detected (Not Detect); Influenza A Subtype 2009 H1 Not Detected (Not Detect); Influenza B Not Detected (Not Detect); Mycoplasma pneumoniae Not Detected (Not Detect); Parainfluenza Virus 1 Not Detected (Not Detect); Parainfluenza Virus 2 Not Detected (Not Detect); Parainfluenza Virus 3 Not Detected (Not Detect); Parainfluenza Virus 4 Not Detected (Not Detect); Respiratory Syncytial Virus Not Detected (Not Detect); SARS-CoV-2 Not Detected (Not Detect)
== END 2020-10-20 13:57 | disposition other institution (70) ==
LOC: 2NENU → SUATTDRO 17:51
PROVIDERS: ADMIT Pharmacist; ATTEND Internal Medicine

== ENCOUNTER 2021-01-10 04:09 | Inpatient (IN) ==
[2021-01-10] MEDS ORDERED: Ondansetron 4 MG/2 ML VIAL IVP ONE (05:26)
[2021-01-10] MEDS ORDERED: Ringers Solution, Lactated 1,000 ML IVC ONE (05:27)
[2021-01-10] MEDS ORDERED: Morphine Sulfate 2 MG/ML SYRINGE IVP ONE (05:27)
[2021-01-10 05:31] LABS: Basophils % 0.1 %; Eosinophils % 0.1 %; Hematocrit 40.9 % (37.5-50.1); Hemoglobin 14.5 g/dL (12.9-16.9); Immature Granulocytes % 0.4 % (0-4); Lymphocytes # 1.6 K/mcL (0.6-4.6); Lymphocytes % 11.1 %; Mean Corpuscular HGB Conc 35.5 g/dL (31.6-35.5); Mean Corpuscular Hemoglobin 31.5 pg (28.0-33.3); Mean Corpuscular Volume 88.7 fL (83.0-100.0); Mean Platelet Volume 10.2 fL (9.4-12.4); Monocytes # 0.5 K/mcL (0.0-1.3); Monocytes % 3.7 %; Platelet Count 225 K/mcL (140-400); Red Blood Count 4.61 M/mcL (4.19-5.50); Red Cell Distribution Width 11.4 % (11.5-14.5); Segmented Neutrophils % 84.6 %; White Blood Count 14.2 K/mcL (4.3-11.1)
[2021-01-10 05:34] LABS: VBG HCO3 28 mEq/L (21-27); VBG PCO2 43 mmHg (41-51); VBG PH 7.42 pH Units (7.32-7.42); VBG PO2 76 mmHg (25-50)
[2021-01-10 05:52] LABS: Alanine Aminotransferase 131 Units/L (7-52); Albumin 4.7 g/dL (3.5-5.7); Albumin/Globulin Ratio 1.8 (1.1-2.2); Alkaline Phosphatase 187 Units/L (34-104); Aspartate Amino Transferase 241 Units/L (13-39); BUN/Creatinine Ratio 14 (6-26); Bilirubin,Direct 0.1 mg/dL (0.0-0.2); Bilirubin,Indirect 0.5 mg/dL (0.0-1.0); Bilirubin,Total 0.6 mg/dL (0.3-1.0); Blood Urea Nitrogen 13 mg/dL (6-20); Calcium 9.9 mg/dL (8.6-10.3); Carbon Dioxide 30 mEq/L (23-29); Chloride 89 mEq/L (98-107); Globulin 2.6 g/dL (2.4-3.5); Glucose 187 mg/dL (70-105); Lipase 345 Units/L (11-82); Osmolality,Calculated 275 (280-300); Potassium 3.8 mEq/L (3.5-5.1); Sodium 130 mEq/L (136-145); Total Protein 7.3 g/dL (6.4-8.9); Triglycerides 237 mg/dL (< 150); eGFR For African Americans > 60 (> 60); eGFR For Non-African Americans > 60 (> 60)
[2021-01-10] MEDS ORDERED: Isovue-370 500 ML BOTTLE IVP ONE (06:42)
[2021-01-10 06:45] LABS: Bacteria,Urine Few per hpf (None-Few); Bilirubin,Urine Negative (Negative); Blood,Urine Trace (Negative); Clarity,Urine Turbid (Clear); Color,Urine Light-Yellow (Yellow); Glucose,Urine (UA) Normal (Normal); Hyaline Casts,Urine Few per lpf (None Seen); Ketones,Urine Negative (Negative); Leukocyte Esterase,Urine Negative (Negative); Nitrite,Urine Negative (Negative); Protein,Urine Trace mg/dL (Neg-Trace); RBC,Urine 0-3 per hpf (0-3); Specific Gravity,Urine 1.012 (1.010-1.025); Squamous Epithelial Cell,Urine Few per hpf (None-Few); Urobilinogen,Urine Normal (Normal); WBC,Urine 0-3 per hpf (0-3)
[2021-01-10] MEDS ORDERED: *HR* HYDROmorphone (PF) 1 MG/ML SYRINGE IVP ONE (07:13)
[2021-01-10] MEDS ORDERED: Naloxone 0.4 MG/ML INJ IVP PRN (07:26)
[2021-01-10] MEDS ORDERED: Dextrose Gel 15 GM/37.5 ML TUBE PO PRN ×2 (07:34)
[2021-01-10] MEDS ORDERED: D5% in Water 1,000 ML IVC PRN (07:34)
[2021-01-10] MEDS ORDERED: *HR* Dextrose 50 % in Water (Syg) 50 ML SYRINGE IVP PRN (07:34)
[2021-01-10] MEDS: Ringers Solution, Lactated 1,000 ML IVC SCH ×2 (07:53→18:28)
[2021-01-10] MEDS ORDERED: *HR* Labetalol 20 MG/4 ML SYRINGE IVP PRN (08:15)
[2021-01-10 08:51] LABS: Estimated Average Glucose 120 mg/dl; Hemoglobin A1C 5.8 %
[2021-01-10] MEDS: *HR* HYDROmorphone 2 MG/ML SYRINGE IVP PRN ×3 (09:38→18:27)
[2021-01-10] MEDS: amLODIPine 5 MG TABLET PO SCH (09:39)
[2021-01-10] MEDS: Thiamine (B-1) 100 MG TABLET PO SCH (09:39)
[2021-01-10] MEDS: Morphine Sulfate 2 MG/ML SYRINGE IVP PRN ×3 (11:48→20:35)
[2021-01-10] MEDS: Insulin LISPRO 300 UNITS/3 ML VIAL SUBQ SCH ×3 (14:22→22:27)
[2021-01-10] MEDS: Ondansetron 4 MG/2 ML VIAL IVP PRN (14:34)
[2021-01-10] MEDS ORDERED: traZODone 50 MG TABLET PO SCH (21:00)
[2021-01-11] MEDS: *HR* HYDROmorphone 2 MG/ML SYRINGE IVP PRN ×5 (00:31→17:47)
[2021-01-11] MEDS: Ringers Solution, Lactated 1,000 ML IVC SCH ×2 (02:46→16:53)
[2021-01-11] MEDS: Morphine Sulfate 2 MG/ML SYRINGE IVP PRN ×2 (02:49→07:30)
[2021-01-11] MEDS: Ondansetron 4 MG/2 ML VIAL IVP PRN ×2 (05:24→15:52)
[2021-01-11 05:51] LABS: Basophils % 0.3 %; Eosinophils % 0.3 %; Hematocrit 40.6 % (37.5-50.1); Immature Granulocytes % 0.4 % (0-4); Lymphocytes # 1.7 K/mcL (0.6-4.6); Lymphocytes % 19.6 %; Mean Corpuscular HGB Conc 34.5 g/dL (31.6-35.5); Mean Corpuscular Hemoglobin 31.3 pg (28.0-33.3); Mean Corpuscular Volume 90.8 fL (83.0-100.0); Mean Platelet Volume 10.4 fL (9.4-12.4); Monocytes # 0.3 K/mcL (0.0-1.3); Monocytes % 3.8 %; Neutrophils # 6.7 K/mcL (1.6-8.9); Platelet Count 186 K/mcL (140-400); Red Blood Count 4.47 M/mcL (4.19-5.50); Red Cell Distribution Width 11.6 % (11.5-14.5); Segmented Neutrophils % 75.6 %; White Blood Count 8.9 K/mcL (4.3-11.1)
[2021-01-11 06:06] LABS: BUN/Creatinine Ratio 10 (6-26); Blood Urea Nitrogen 7 mg/dL (6-20); Calcium 9.6 mg/dL (8.6-10.3); Carbon Dioxide 33 mEq/L (23-29); Chloride 96 mEq/L (98-107); Glucose 132 mg/dL (70-105); Magnesium 1.9 mg/dL (1.6-2.6); Osmolality,Calculated 284 (280-300); Phosphorous 4.3 mg/dL (2.7-4.5); Potassium 3.5 mEq/L (3.5-5.1); Sodium 137 mEq/L (136-145); eGFR For African Americans > 60 (> 60); eGFR For Non-African Americans > 60 (> 60)
[2021-01-11] MEDS: Thiamine (B-1) 100 MG TABLET PO SCH (07:30)
[2021-01-11] MEDS: amLODIPine 5 MG TABLET PO SCH (07:30)
[2021-01-11] MEDS: Insulin LISPRO 300 UNITS/3 ML VIAL SUBQ SCH ×4 (07:45→20:51)
[2021-01-11] MEDS ORDERED: hydrOXYzine pamoate 25 MG CAPSULE PO PRN (16:09)
[2021-01-11] MEDS: gemfibroziL 600 MG TABLET PO SCH (16:53)
[2021-01-11] MEDS: traZODone 50 MG TABLET PO SCH (20:09)
[2021-01-12] MEDS: *HR* HYDROmorphone 2 MG/ML SYRINGE IVP PRN ×3 (01:46→16:15)
[2021-01-12] MEDS: Ringers Solution, Lactated 1,000 ML IVC SCH ×2 (05:27→14:06)
[2021-01-12] MEDS: Ondansetron 4 MG/2 ML VIAL IVP PRN (06:44)
[2021-01-12] MEDS: Insulin LISPRO 300 UNITS/3 ML VIAL SUBQ SCH ×4 (09:36→20:05)
[2021-01-12] MEDS: Thiamine (B-1) 100 MG TABLET PO SCH (10:51)
[2021-01-12] MEDS: amLODIPine 5 MG TABLET PO SCH (10:51)
[2021-01-12] MEDS: Aspirin Enteric Coated 81 MG Tablet PO SCH (10:51)
[2021-01-12] MEDS: gemfibroziL 600 MG TABLET PO SCH ×2 (10:51→17:13)
[2021-01-12] MEDS: Folic Acid 1 MG TABLET PO SCH (10:51)
[2021-01-12] MEDS: traZODone 50 MG TABLET PO SCH (20:05)
[2021-01-13] MEDS: *HR* HYDROmorphone 2 MG/ML SYRINGE IVP PRN (01:17)
[2021-01-13 01:52] LABS: Basophils % 0.4 %; Eosinophils # 0.1 K/mcL (0.0-0.6); Eosinophils % 1.2 %; Hematocrit 37.9 % (37.5-50.1); Hemoglobin 12.9 g/dL (12.9-16.9); Immature Granulocytes % 0.6 % (0-4); Lymphocytes # 1.7 K/mcL (0.6-4.6); Lymphocytes % 34.9 %; Mean Corpuscular Hemoglobin 31.9 pg (28.0-33.3); Mean Corpuscular Volume 93.6 fL (83.0-100.0); Mean Platelet Volume 10.5 fL (9.4-12.4); Monocytes # 0.3 K/mcL (0.0-1.3); Monocytes % 5.6 %; Neutrophils # 2.8 K/mcL (1.6-8.9); Platelet Count 172 K/mcL (140-400); Red Blood Count 4.05 M/mcL (4.19-5.50); Red Cell Distribution Width 11.5 % (11.5-14.5); Segmented Neutrophils % 57.3 %
[2021-01-13 02:09] LABS: Alanine Aminotransferase 57 Units/L (7-52); Albumin 3.7 g/dL (3.5-5.7); Albumin/Globulin Ratio 1.4 (1.1-2.2); Alkaline Phosphatase 104 Units/L (34-104); Aspartate Amino Transferase 44 Units/L (13-39); BUN/Creatinine Ratio 14 (6-26); Bilirubin,Total 0.3 mg/dL (0.3-1.0); Blood Urea Nitrogen 10 mg/dL (6-20); Calcium 9.3 mg/dL (8.6-10.3); Carbon Dioxide 30 mEq/L (23-29); Chloride 102 mEq/L (98-107); Globulin 2.7 g/dL (2.4-3.5); Glucose 198 mg/dL (70-105); Osmolality,Calculated 293 (280-300); Potassium 3.9 mEq/L (3.5-5.1); Sodium 139 mEq/L (136-145); Total Protein 6.4 g/dL (6.4-8.9); eGFR For African Americans > 60 (> 60); eGFR For Non-African Americans > 60 (> 60)
[2021-01-13] MEDS: amLODIPine 5 MG TABLET PO SCH (07:44)
[2021-01-13] MEDS: Aspirin Enteric Coated 81 MG Tablet PO SCH (07:44)
[2021-01-13] MEDS: gemfibroziL 600 MG TABLET PO SCH ×2 (07:44→15:31)
[2021-01-13] MEDS: Folic Acid 1 MG TABLET PO SCH (07:44)
[2021-01-13] MEDS: Insulin LISPRO 300 UNITS/3 ML VIAL SUBQ SCH ×3 (07:44→17:28)
[2021-01-13] MEDS: Thiamine (B-1) 100 MG TABLET PO SCH (07:44)
[2021-01-13] MEDS: Ringers Solution, Lactated 1,000 ML IVC SCH ×2 (07:48→19:50)
[2021-01-13] MEDS: Ondansetron 4 MG/2 ML VIAL IVP PRN (11:23)
[2021-01-13] MEDS ORDERED: Acetaminophen 325 MG TABLET PO PRN (14:09)
[2021-01-13] MEDS ORDERED: Ketorolac 30 MG/ML VIAL IVP PRN (14:09)
[2021-01-13] MEDS ORDERED: Insulin LISPRO 300 UNITS/3 ML VIAL SUBQ SCH ×2 (18:42→21:00)
[2021-01-13] MEDS: traZODone 50 MG TABLET PO SCH (19:50)
[2021-01-13] MEDS ORDERED: Insulin DETEMIR 100 UNIT/ML X5UNITS SUBQ SCH (21:00)
[2021-01-14 05:05] LABS: Basophils % 0.9 %; Red Cell Distribution Width 11.9 % (11.5-14.5)
[2021-01-14 05:07] LABS: Eosinophils # 0.1 K/mcL (0.0-0.6); Eosinophils % 1.6 %; Hematocrit 41.5 % (37.5-50.1); Hemoglobin 13.1 g/dL (12.9-16.9); Immature Granulocytes % 1.1 % (0-4); Immature Platelets 4.6 % (1.1-6.1); Lymphocytes # 1.8 K/mcL (0.6-4.6); Lymphocytes % 41.2 %; Mean Corpuscular HGB Conc 31.6 g/dL (31.6-35.5); Mean Corpuscular Hemoglobin 31.3 pg (28.0-33.3); Mean Platelet Volume 11.2 fL (9.4-12.4); Monocytes # 0.4 K/mcL (0.0-1.3); Platelet Count 143 K/mcL (140-400); Red Blood Count 4.19 M/mcL (4.19-5.50); Segmented Neutrophils % 46.2 %; White Blood Count 4.4 K/mcL (4.3-11.1)
[2021-01-14] MEDS ORDERED: *HR* Enoxaparin 40 MG/0.4 ML SYRINGE SQ SCH (06:00)
[2021-01-14 07:02] VITALS: BP 133/79; PULSE 68; TEMP 98.1; O2SAT 97
[2021-01-14] MEDS: Thiamine (B-1) 100 MG TABLET PO SCH (08:59)
[2021-01-14] MEDS: amLODIPine 5 MG TABLET PO SCH (08:59)
[2021-01-14] MEDS: gemfibroziL 600 MG TABLET PO SCH (08:59)
[2021-01-14] MEDS: Folic Acid 1 MG TABLET PO SCH (08:59)
[2021-01-14] MEDS ORDERED: *HR* Buprenorphine HCl 8 MG TAB.SUBL SL SCH (09:00)
[2021-01-14] MEDS: Aspirin Enteric Coated 81 MG Tablet PO SCH (09:00)
[2021-01-14] MEDS ORDERED: FLU Vac QV 21-22 (6Month+)/PF 0.5 ML SYRINGE IM ONE (09:49)
== END 2021-01-14 10:14 | disposition home or self-care (01) | DRG 439 ==
LOC: 3ANU 04:09 → EMEROOARM 04:09 → 3ANU 08:38 → SUATTDRO 15:04
PROVIDERS: ADMIT Student in an Organized Health Care Education/Training Program; ATTEND Internal Medicine